=== PATIENT | female | born 1975 | race Caucasian/White ===

== ENCOUNTER 2018-06-08 08:19 | Inpatient (IN) | payer MEDICARE, MEDICAID ==
[2018-06-08 08:58] LABS: Actual Bicarbonate (HCO3a) 22.3 mEq/L (22-28); Analyzer IN Cardio ER; Base Excess (BEa) -5.2 mEq/L (-2.0 to +3.0); CO2 Tension 51.8 mmHg (35.0-45.0); Calcium, Ionized 1.11 mmol/L (1.12-1.30); Hemoglobin (Hb) 13.3 g/dL (12.0-16.0); O2 Tension (PaO2) 186.8 mmHg (80.0-100.0); Potassium - ABG Lab 2.87 mmol/L (3.70-5.30)
[2018-06-08 09:04] LABS: Puncture Site LRA; pH, Arterial 7.25 (7.35-7.45)
[2018-06-08 09:08] LABS: #Lymphocytes 0.3 thou/uL (1.20-3.40); #Monocytes 0.4 thou/uL (0.11-0.59); #Neutrophils 10.3 thou/uL (1.40-6.50); %Basophils 0.1 % (0.0-1.0); %Eosinophils 0.1 % (0.0-10.0); %Monocytes 3.5 % (0.0-10.0); %Neutrophils 93.3 % (42.0-75.0); Mean Corpuscular Hemoglobin 30.8 pg (27.0-31.0); Mean Corpuscular Volume 93.2 fL (78.0-98.0); Mean Platelet Volume 7.8 fL (7.4-10.4); Platelet Count 259 thou/uL (130-400); RBC Distribution Width 11.5 % (11.5-14.5); Red Blood Cell (RBC) Count 4.23 mill/uL (4.20-5.40); White Blood Cell (WBC) Count 11.1 thou/uL (4.8-10.8)
[2018-06-08 09:16] LABS: Bilirubin Negative (Negative); Blood, Urine Negative (Negative); Clarity CLOUDY (Clear); Glucose, Urine (Dipstick) Negative (Negative); Leukocyte Negative (Negative); Nitrite Negative (Negative); Protein, Urine (Dipstick) 30 mg/dL (Neg-Trace); Specific Gravity, Urine 1.017 (1.002-1.036); Urobilinogen 0.2 mg/dL (0.2-1.0)
[2018-06-08 09:18] LABS: ALT (SGPT) 21 U/L (8-55); AST (SGOT) 40 U/L (5-34); Albumin 3.7 g/dL (3.5-5.0); Alkaline Phosphatase 60 U/L (40-150); Anion Gap 12 mmol/L (10-20); BUN (Urea Nitrogen) 23 mg/dL (7.0-18.7); Bilirubin, Total 0.7 mg/dL (0.2-1.2); Calc. Creatinine Clearance 0 mL/min (70-130); Calcium 8.6 mg/dL (7.8-10.44); Carbon Dioxide 23 mmol/L (22-29); Chloride 107 mmol/L (98-107); Estimated GFR-MDRD 40; Globulin 2.7 g/dL (2.4-3.5); Glucose 184 mg/dL (70-105); Magnesium 1.4 mg/dL (1.6-2.6); Protein, Total 6.4 g/dL (6.0-8.3); Sodium 139 mmol/L (136-145)
[2018-06-08 09:18] LABS: Bacteria/HPF None Seen HPF (None Seen); RBC/HPF 0-3 HPF (0-3); Squamous Epithelial 0-3 HPF (0-3); WBC/HPF None Seen HPF (0-3)
[2018-06-08 09:22] LABS: Pathc Cast-AUWi Flag 3.05 (0-2.49)
[2018-06-08 09:23] LABS: Potassium 2.7 mmol/L (3.5-5.1)
[2018-06-08 09:28] LABS: Pregnancy Test - Urine (BHCG) Negative (Negative)
[2018-06-08 09:29] LABS: Pregu Control Background? CLEAR/WHITE (CLR/WHITE); Pregu Control Bar Appear? YES (CONTROL BAR); Specific Gravity 1.017 (1.002-1.036)
[2018-06-08 09:38] LABS: Amphetamine Not Detected (NotDetected); Cocaine Metabolite Screen Not Detected (NotDetected); Medtox Reader # READER 1; Methamphetamine Detected (NotDetected); Opiate Screen Not Detected (NotDetected); Phencyclidine (PCP) Not Detected (NotDetected); THC/Cannabinoid Screen Not Detected (NotDetected)
[2018-06-08 09:39] LABS: Barbiturates Screen Not Detected (NotDetected); Benzodiazepine Screen Detected (NotDetected); Medtox Control Line Valid? VALID (VALID); Methadone Not Detected (NotDetected); Oxycodone Screen Not Detected (NotDetected); Tricyclic Screen Detected (NotDetected)
[2018-06-08 09:48] LABS: Hyaline Casts/LPF 0-3 HYALINE CAST LPF (0-3 Hyaline); Manual Microscopic Reviewed? No Path Casts Seen
[2018-06-08] MEDS ORDERED: Magnesium 2 GM/50 ML BAG (IN WATER) ONE (09:56)
--- NOTE | 2018-06-08 09:57 | RAD ---
CHEST ONE VIEW: History: Possible overdose. Unresponsive patient. FINDINGS: Endotracheal tube is at the level of the clavicles. Normal cardiac silhouette. The pulmonary vessels and hilum are normal. Visualized costophrenic angles are clear. Possible right lower lobe infiltrate due to aspiration. Questionable left lower lobe infiltrate. No pneumothorax or osseous abnormality. IMPRESSION: Possible bibasilar infiltrate which may be due to aspiration. POS: [facility]
--- NOTE | 2018-06-08 09:59 | CT ---
CT HEAD NONCONTRAST: History: Altered mental status. Comparison: None. FINDINGS: There is no evidence of acute intracranial hemorrhage or infarct. Ventricles appear normal in size, s hape, and position. No mass effect or shift of midline structures. Physiologic calcification at the b [place] ganglia. Fluid layers within the dependent portion of the sphenoid sinus. IMPRESSION: No acute intracranial abnormalities are demonstrated. POS: [facility]
[2018-06-08] MEDS ORDERED: Potassium Chloride 20 MEQ in Premix Bag 1 BAG IVPB SCH ×2 (10:30→11:30)
--- NOTE | 2018-06-08 10:40 | RAD ---
SINGLE VIEW OF THE CHEST: Comparison: 06-08-18 History: Overdose on Seroquel and trazodone. Unresponsiveness. FINDINGS: A single view of the lower chest shows an NG tube in the stomach. There is no evidence of consolidati on, mass, or pleural effusion. IMPRESSION: NG tube located in the stomach. POS: [facility]
[2018-06-08] MEDS ORDERED: Potassium Chloride 40 MEQ in Premix Bag 1 BAG IVPB SCH (10:45)
--- NOTE | 2018-06-08 11:09 | PDOC.FPROB ---
FMR OB H&P: HPI - History of Present Illness Chief Complaint: Overdose History of Present Illness: 42 yo pt who was found by mother this morning passed out with vomit over her. FMR OB H&P: Medications - Current Allergies/Adverse Reactions: Allergies Allergy/AdvReac Type Severity Reaction Status Date / Time No Known Drug Allergies Allergy Verified 06/08/18 10:21 FMR OB H&P: Results - Labs Lab results: Laboratory Results - last 24 hr 06/08/18 06/08/18 06/08/18 08:25 08:25 08:25 WBC 11.1 H RBC 4.23 Hgb 13.0 Hct 39.4 MCV 93.2 MCH 30.8 MCHC 33.0 RDW 11.5 Plt Count 259 MPV 7.8 Neutrophils % 93.3 H Lymphocytes % 3.0 L Monocytes % 3.5 Eosinophils % 0.1 Basophils % 0.1 Neutrophils # 10.3 H Lymphocytes # 0.3 L Monocytes # 0.4 Eosinophils # 0.0 Basophils # 0.0 Specimen Type Puncture Site Bicarbonate Actual ABG pH ABG pCO2 ABG pO2 ABG O2 Sat Calc/Joe ABG O2 Content ABG Base Excess ABG Hematocrit ABG Hemoglobin ABG Oxyhemoglobin ABG Carboxyhemoglobin ABG Methemoglobin ABG Deoxyhemoglobin Kush Test A-a O2 Gradient Ionized Calcium Mode of Support Mechanical Rate Inspired O2 Tidal Volume Pressure Support PEEP or CPAP Sodium 139 Potassium 2.7 L* Chloride 107 Carbon Dioxide 23 Anion Gap 12 BUN 23 H Creatinine 1.46 H Estimated GFR (MDRD) 40 Glucose 184 H Calcium 8.6 Magnesium 1.4 L Total Bilirubin 0.7 AST 40 H ALT 21 Alkaline Phosphatase 60 Ammonia Creatine Kinase Serum Total Protein 6.4 Albumin 3.7 Globulin 2.7 Albumin/Globulin Ratio 1.4 TSH 3rd Generation 0.6581 Urine Color Urine Clarity Urine pH Ur Specific [place] Urine Protein Urine Glucose (UA) Urine Ketones Urine Blood Urine Nitrite Urine Bilirubin Urine Urobilinogen Ur Leukocyte Esterase Urine RBC Urine WBC Ur Squamous Epith Cells Urine Bacteria Hyaline Casts Urine Test Urine Opiates Screen Ur Oxycodone Screen Urine Methadone Screen Ur Propoxyphene Screen Ur Barbiturates Screen Ur Tricyclics Screen Ur Phencyclidine Scrn Ur Amphetamines Screen U Methamphetamines Scrn U Benzodiazepines Scrn U Cocaine Metab Screen U Cannabinoids Screen Drug Screen Comment 12/11/1906/08/18 06/08/18 08:25 08:38 08:38 WBC RBC Hgb Hct MCV MCH MCHC RDW Plt Count MPV Neutrophils % Lymphocytes % Monocytes % Eosinophils % Basophils % Neutrophils # Lymphocytes # Monocytes # Eosinophils # Basophils # Specimen Type Puncture Site Bicarbonate Actual ABG pH ABG pCO2 ABG pO2 ABG O2 Sat Calc/Joe ABG O2 Content ABG Base Excess ABG Hematocrit ABG Hemoglobin ABG Oxyhemoglobin ABG Carboxyhemoglobin ABG Methemoglobin ABG Deoxyhemoglobin Kush Test A-a O2 Gradient Ionized Calcium Mode of Support Mechanical Rate Inspired O2 Tidal Volume Pressure Support PEEP or CPAP Sodium Potassium Chloride Carbon Dioxide Anion Gap BUN Creatinine Estimated GFR (MDRD) Glucose Calcium Magnesium Total Bilirubin AST ALT Alkaline Phosphatase Ammonia Creatine Kinase 866 H Serum Total Protein Albumin Globulin Albumin/Globulin Ratio TSH 3rd Generation Urine Color Urine Clarity Urine pH Ur Specific [place] 1.017 Urine Protein Urine Glucose (UA) Urine Ketones Urine Blood Urine Nitrite Urine Bilirubin Urine Urobilinogen Ur Leukocyte Esterase Urine RBC Urine WBC Ur Squamous Epith Cells Urine Bacteria Hyaline Casts Urine Test Negative Urine Opiates Screen Not Detected Ur Oxycodone Screen Not Detected Urine Methadone Screen Not Detected Ur Propoxyphene Screen Not Detected Ur Barbiturates Screen Not Detected Ur Tricyclics Screen Detected H Ur Phencyclidine Scrn Not Detected Ur Amphetamines Screen Not Detected U Methamphetamines Scrn Detected H U Benzodiazepines Scrn Detected H U Cocaine Metab Screen Not Detected U Cannabinoids Screen Not Detected Drug Screen Comment 06/08/18 06/08/18 06/08/18 08:38 08:59 08:59 WBC RBC Hgb Hct MCV MCH MCHC RDW Plt Count MPV Neutrophils % Lymphocytes % Monocytes % Eosinophils % Basophils % Neutrophils # Lymphocytes # Monocytes # Eosinophils # Basophils # Specimen Type ARTERIAL Puncture Site LRA Bicarbonate Actual 22.3 ABG pH 7.25 L* ABG pCO2 51.8 H ABG pO2 186.8 H ABG O2 Sat Calc/Joe 98.7 H ABG O2 Content 18.3 ABG Base Excess -5.2 L ABG Hematocrit 39.0 ABG Hemoglobin 13.3 ABG Oxyhemoglobin 95.9 ABG Carboxyhemoglobin 2.0 ABG Methemoglobin 0.80 ABG Deoxyhemoglobin 1.3 Kush Test NOT DONE A-a O2 Gradient 461.450 H Ionized Calcium 1.11 L Mode of Support SIMV/PS Mechanical Rate 18 Inspired O2 100 Tidal Volume 450 Pressure Support 10 PEEP or CPAP 5.0 Sodium 141 Potassium 2.87 L Chloride 108 H Carbon Dioxide Anion Gap BUN Creatinine Estimated GFR (MDRD) Glucose Calcium Magnesium Total Bilirubin AST ALT Alkaline Phosphatase Ammonia 28 Creatine Kinase Serum Total Protein Albumin Globulin Albumin/Globulin Ratio TSH 3rd Generation Urine Color YELLOW Urine Clarity CLOUDY Urine pH 5.0 Ur Specific [place] 1.017 Urine Protein 30 H Urine Glucose (UA) Negative Urine Ketones Negative Urine Blood Negative Urine Nitrite Negative Urine Bilirubin Negative Urine Urobilinogen 0.2 Ur Leukocyte Esterase Negative Urine RBC 0-3 Urine WBC None Seen Ur Squamous Epith Cells 0-3 Urine Bacteria None Seen Hyaline Casts 0-3 HYALINE CAST Urine Test Urine Opiates Screen Ur Oxycodone Screen Urine Methadone Screen Ur Propoxyphene Screen Ur Barbiturates Screen Ur Tricyclics Screen Ur Phencyclidine Scrn Ur Amphetamines Screen U Methamphetamines Scrn U Benzodiazepines Scrn U Cocaine Metab Screen U Cannabinoids Screen Drug Screen Comment FMR OB H&P: A/P Discussion: Date/Time: 06/08/18 1104 This H&P was discussed with [] and [] who agree with the above documentation and plan.
--- NOTE | 2018-06-08 11:17 | PDOC.FPRHP ---
- History of Present Illness Chief Complaint: Overdose History of Present Illness: 42 yo female was found this morning by her mother passed out and covered in vomit. Pt is intubated and sedated. Unable to obtain ROS or History from pt. Unable to get ahold of family to get any further history at this time. Per EMS pt was found with an empty queitipine and trazadone bottle.d queitipine was filled with 90 pills on Jun 01. - Allergies/Adverse Reactions Allergies Allergy/AdvReac Type Severity Reaction Status Date / Time No Known Drug Allergies Allergy Verified 06/08/18 10:21 - History PMHx: unknown at this time PSHx: unknown at this time FHx: unknown at this time Social: unknown at this time. - Review of Systems ROS unobtainable: due to endotracheal tube - Vital signs BP: [] HR: [] RR: [] Tmax: [] Pox: []% on [] Wt: [] - Physical Exam HEENT: normocephalic and atraumatic, conjunctiva clear Neck: supple, trachea midline, no LAD Heart: RRR, normal S1/S2, no murmurs/rubs/gallops, pulses present, no edema Lungs: no respiratory distress -Lungs: Some rales noted Abdomen: soft, non-tender, bowel sounds present, no masses/distention, no hernias Musculoskeletal: normal structure, normal tone -Neurological: Unable to fully assess due to patient being sedated Skin: no rash/lesions, good turgor, capillary refill <2 seconds Heme/Lymphatic: no unusual bruising or bleeding, no purpura -Psychiatric: unable to assess due to intubation FMR H&P: Results - Labs Result Diagrams: 06/08/18 08:25 06/08/18 16:10 Lab results: WBC 11.1 thou/uL (4.8-10.8) H 06/08/18 08:25 Hgb 13.0 g/dL (12.0-16.0) 06/08/18 08:25 Hct 39.4 % (36.0-47.0) 06/08/18 08:25 MCV 93.2 fL (78.0-98.0) 06/08/18 08:25 Plt Count 259 thou/uL (130-400) 06/08/18 08:25 Neutrophils % 93.3 % (42.0-75.0) H 06/08/18 08:25 ABG pH 7.25 (7.35-7.45) L* 06/08/18 08:59 ABG pCO2 51.8 mmHg (35.0-45.0) H 06/08/18 08:59 ABG pO2 186.8 mmHg (80.0-100.0) H 06/08/18 08:59 Sodium 139 mmol/L (136-145) 06/08/18 08:25 Potassium 2.7 mmol/L (3.5-5.1) L* 06/08/18 08:25 Chloride 107 mmol/L (98-107) 06/08/18 08:25 Carbon Dioxide 23 mmol/L (22-29) 06/08/18 08:25 BUN 23 mg/dL (7.0-18.7) H 06/08/18 08:25 Creatinine 1.46 mg/dL (0.6-1.1) H 06/08/18 08:25 Glucose 184 mg/dL (70-105) H 06/08/18 08:25 Calcium 8.6 mg/dL (7.8-10.44) 06/08/18 08:25 Total Bilirubin 0.7 mg/dL (0.2-1.2) 06/08/18 08:25 AST 40 U/L (5-34) H 06/08/18 08:25 ALT 21 U/L (8-55) 06/08/18 08:25 Alkaline Phosphatase 60 U/L (40-150) 06/08/18 08:25 Ammonia 28 umol/L (18-72) 06/08/18 08:59 Creatine Kinase 866 U/L (29-168) H 06/08/18 08:25 Serum Total Protein 6.4 g/dL (6.0-8.3) 06/08/18 08:25 Albumin 3.7 g/dL (3.5-5.0) 06/08/18 08:25 Urine Ketones Negative mg/dL (Negative) 06/08/18 08:38 Urine Blood Negative (Negative) 06/08/18 08:38 Urine Nitrite Negative (Negative) 06/08/18 08:38 Ur Leukocyte Esterase Negative (Negative) 12/05/18 08:38 Urine RBC 0-3 HPF (0-3) 06/08/18 08:38 Urine WBC None Seen HPF (0-3) 06/08/18 08:38 Ur Squamous Epith Cells 0-3 HPF (0-3) 06/08/18 08:38 Urine Bacteria None Seen HPF (None Seen) 06/08/18 08:38 - EKG Interpretation EKG: QT interval prolonged to 610 - Radiology Interpretation Chest x-ray Status: image reviewed by me, report reviewed by me (Possible bibasliar infilfitrate. Concern for aspiration. OG tube in stomach.) CT scan - head Status: image reviewed by me, report reviewed by me (No acute intracranial abnormlities noted.) FMR H&P: A/P - Problem List (1) Overdose Current Visit: Yes Status: Acute Code(s): T50.901A - POISONING BY UNSP DRUG/ MEDS/BIOL SUBST, ACCIDENTAL, INIT (2) Prolonged Q-T interval on ECG Current Visit: Yes Status: Acute Code(s): R94.31 - ABNORMAL ELECTROCARDIOGRAM [ECG] [EKG] (3) Drug abuse Current Visit: Yes Status: Acute Code(s): F19.10 - OTHER PSYCHOACTIVE SUBSTANCE ABUSE, UNCOMPLICATED (4) Hypokalemia Current Visit: Yes Status: Acute Code(s): E87.6 - HYPOKALEMIA (5) Hypomagnesemia Current Visit: Yes Status: Acute Code(s): E83.42 - HYPOMAGNESEMIA (6) Aspiration pneumonia Current Visit: Yes Status: Acute Code(s): J69.0 - PNEUMONITIS DUE TO INHALATION OF FOOD AND VOMIT (7) CAL (acute kidney injury) Current Visit: Yes Status: Acute Code(s): N17.9 - ACUTE KIDNEY FAILURE, UNSPECIFIED - Plan Overdose, suspect seroquel and trazadone -Posion control notified. EKG shows prolonged QT. Replacing electrolytes as needed. -Will repeat EKG after electrolyte replacement. -Will repeat BMP at 1600. Will continue to replace as needed. -Intubated and Sedated. Admit to CCU -Pulmonology consulted- Dr. Lutz- follow recs -Pt CK elevated. Unsure of how long pt was down. Will fluid resuscitate with concern for rhabdo with NS@200mls/hr at this time -MHMR consult pending once medically stable Hypomagnesmia -Replacing at this time. Recheck at 1600. Continue to monitor and replace -Phosphorous pending Hypokalemia -Replacing with IV potassium. Will recheck BMp 1600. Continue to monitor and replace Aspiration PNA -WBC mildly elevated. Pt had fever upon arrival to ER. CXR shows bilateral lower infiltrates concern for aspiration. Pt found with vomit. -Concern for aspiration PNA at this time. -Got does of unasyn in ER. Will switch to zosyn at this time. CAL -Pt Cr bumped. CK elevated. Likely due to overdose and mild dehydration. -Fluid Resuscitation per above. Drug Abuse -UDS positive for meth. FMR H&P: Upper Level - Plan Date/Time: 06/08/18 1115 I, [], have evaluated this patient and agree with findings/plan as outlined by legal summer intern resident. Pertinent changes/additions are listed here. Attending Addendum - Attending Addendum Date/Time: 06/08/18 0316 I personally evaluated the patient and discussed the management with Dr. Milligan. I agree with the History, Examination, Assessment and Plan documented above with any addition or exceptions noted below. The patient is intubated in the ER after an overdose on seroquel. Getting additional ekg to trend QT. Pt's hair is covered in vomit. CXR consistent with aspiration. Will start zosyn. She reportedly had a fever when ems found her. Poison control has been contacted. Admitting to ICU. Will need mhmr once medically stable. Replace electrolytes.
[2018-06-08] MEDS ORDERED: Ampicillin/Sulbactam 3 GM in Sodium Chloride 0.9% 100 ML IVPB SCH (11:30)
[2018-06-08] MEDS ORDERED: Proparacaine 0.5% Opth 15 ML BOT ONE (11:32)
[2018-06-08] MEDS ORDERED: Fentanyl 100 MCG/2 ML VIAL ONE (11:46)
[2018-06-08 12:22] LABS: Phosphorus 1.8 mg/dL (2.3-4.7)
[2018-06-08] MEDS ORDERED: Ventilator Sedation Protocol 1 EACH FS SCH (12:28)
[2018-06-08] MEDS ORDERED: Senokot S 8.6-50 MG TAB PO PRN (12:28)
[2018-06-08] MEDS ORDERED: Bisacodyl 5 MG TAB PO PRN (12:28)
[2018-06-08] MEDS ORDERED: Propofol 1,000 MG/100 ML VIAL IV ONE (12:36)
[2018-06-08] MEDS ORDERED: Propofol BOLUS 1,000 MG/100 ML VIAL IV PRN (12:43)
[2018-06-08] MEDS ORDERED: Lorazepam 2 MG/ML VIAL SLOW IVP PRN (12:43)
[2018-06-08] MEDS ORDERED: DISCONTINUE PREVIOUS NARCOTIC PAIN MEDICATIONS AND BENZODIAZEPINES FS SCH (12:43)
[2018-06-08] MEDS ORDERED: Fentanyl BOLUS 250 ML IVPB PRN (12:43)
[2018-06-08] MEDS ORDERED: fentaNYL Citrate/PF 2,000 MCG in Sodium Chloride 0.9% 60 ML IV SCH (12:43)
[2018-06-08] MEDS ORDERED: Piperacillin/Tazobactam 3.375 GM in Sodium Chloride 0.9% 100 ML IVPB SCH (12:45)
[2018-06-08] MEDS ORDERED: Enoxaparin Sodium 30 MG/0.3 ML SYRINGE SC SCH (12:45)
[2018-06-08] MEDS: Sodium Chloride 0.9% 1,000 ML IV SCH ×3 (12:54→23:53)
[2018-06-08 13:42] LABS: Actual Bicarbonate (HCO3a) 20.2 mEq/L (22-28); Base Excess (BEa) -7.9 mEq/L (-2.0 to +3.0); CO2 Tension 52.4 mmHg (35.0-45.0); Calcium, Ionized 1.12 mmol/L (1.12-1.30); Carboxyhemoglobin (COHb) 1.2 gm% (0.0-3.0); Hemoglobin (Hb) 12.3 g/dL (12.0-16.0); O2 Tension (PaO2) 73.5 mmHg (80.0-100.0); Potassium - ABG Lab 4.51 mmol/L (3.70-5.30)
[2018-06-08 13:46] LABS: Puncture Site RBA
[2018-06-08 16:49] LABS: Anion Gap 11 mmol/L (10-20); BUN (Urea Nitrogen) 21 mg/dL (7.0-18.7); Calc. Creatinine Clearance 70 mL/min (70-130); Calcium 7.6 mg/dL (7.8-10.44); Carbon Dioxide 19 mmol/L (22-29); Chloride 114 mmol/L (98-107); Estimated GFR-MDRD 54; Glucose 215 mg/dL (70-105); Potassium 4.3 mmol/L (3.5-5.1); Sodium 140 mmol/L (136-145)
[2018-06-08] MEDS ORDERED: Sodium Chloride 0.9% 1,000 ML IV SCH (18:15)
[2018-06-08] MEDS: Piperacillin/Tazobactam 3.375 GM in Sodium Chloride 0.9% 100 ML IVPB SCH ×2 (18:25→23:49)
[2018-06-08] MEDS: Diabetic Tussin 200 MG/10 ML UDCUP PO SCH ×3 (18:26→22:27)
[2018-06-08] MEDS: Albuterol Sulfate 2.5 mg/3 ml Neb NEB SCH ×2 (18:27→22:33)
[2018-06-08] MEDS: Famotidine/PF 20 mg/2ml Vial SLOW IVP SCH (19:08)
[2018-06-08] MEDS: Morphine 2 MG/ML SYRINGE SLOW IVP PRN (20:15)
--- NOTE | 2018-06-08 20:48 | CON ---
DATE OF CONSULTATION: 06/08/2018 SUBJECTIVE: Shawna Pereyra is a 42-year-old female, who apparently took a large volume of Seroquel and trazodone. She subsequently was intubated in the field with a 6.0 endotracheal tube. She still has vomit in her hair. Subsequently, she has been admitted to the critical care unit for ventilatory support. PAST MEDICAL HISTORY: Unknown. FAMILY HISTORY: Unknown. SOCIAL HISTORY: Unknown. REVIEW OF SYSTEMS: Unknown and unobtainable. PHYSICAL EXAMINATION: GENERAL: The pupils are sluggish. She moves all of her extremities spontaneously. She was on no sedation when she arrived in the unit. She will not awaken. VITAL SIGNS: Heart rate is 102, blood pressure is 98/78, recommended another liter of saline to be infused, respiratory rate is 20, oximetry is 96. NECK: Without lymphadenopathy. LUNGS: Clear. HEART: Regular rhythm. S1 and S2 are normal. ABDOMEN: Soft. No masses. EXTREMITIES: Without edema. IMAGING DATA: Chest radiograph shows an NG tube, no infiltrates. IMPRESSION: 1. Polypharmaceutical overdose. 2. Probable intravascular volume depletion. PLAN: IV hydration, ventilatory support, sedation to keep her from self- extubating. Hopefully, she will be a candidate for extubation within 24 to 48 hours. TIME SPENT: Critical care time 30 minutes. Job ID: [id number] MTDD
[2018-06-08] MEDS: Propofol 1,000 MG/100 ML VIAL IV PRN (21:11)
[2018-06-09] MEDS: Morphine 2 MG/ML SYRINGE SLOW IVP PRN ×2 (00:01→06:06)
[2018-06-09] MEDS: Albuterol Sulfate 2.5 mg/3 ml Neb NEB SCH ×6 (02:18→22:35)
[2018-06-09] MEDS: Diabetic Tussin 200 MG/10 ML UDCUP PO SCH ×6 (02:57→21:44)
[2018-06-09] MEDS: Piperacillin/Tazobactam 3.375 GM in Sodium Chloride 0.9% 100 ML IVPB SCH (05:31)
[2018-06-09] MEDS: Sodium Chloride 0.9% 1,000 ML IV SCH (05:31)
[2018-06-09 06:00] VITALS: BMI 25.3
[2018-06-09 06:52] LABS: Actual Bicarbonate (HCO3a) 18.5 mEq/L (22-28); Base Excess (BEa) -5.5 mEq/L (-2.0 to +3.0); Calcium, Ionized 1.01 mmol/L (1.12-1.30); Carboxyhemoglobin (COHb) 0.8 gm% (0.0-3.0); O2 Tension (PaO2) 91.4 mmHg (80.0-100.0); Potassium - ABG Lab 3.42 mmol/L (3.70-5.30); pH, Arterial 7.39 (7.35-7.45)
[2018-06-09 06:55] LABS: Puncture Site LBA
[2018-06-09] MEDS: Propofol 1,000 MG/100 ML VIAL IV PRN (07:09)
--- NOTE | 2018-06-09 07:23 | PDOC.FM ---
- Subjective Subjective: Pt intubated. Pt somewhat agitated. Responds to voice. Does not follow commands. Pt has no signs of acute distress. Per nurse unable to fully sedate as it will decrease her BP. - Objective MAR Reviewed: Yes Vital Signs & Weight: Vital Signs (12 hours) Temp Pulse Resp BP Pulse Ox 06/09/18 07:00 98.8 F 06/09/18 06:00 26 H 06/09/18 04:00 99 F 26 H 06/09/18 03:07 26 H 99 06/09/18 02:18 77 104/71 06/09/18 02:00 99.1 F 26 H 06/09/18 00:00 26 H 06/08/18 23:43 26 H 96 06/08/18 23:00 99 F 06/08/18 22:34 80 95/65 06/08/18 22:00 98.4 F 25 H 06/08/18 20:00 26 H 99 Weight Weight 67 kg Most Recent Monitor Data Heart Rate from ECG 85 NIBP 93/52 NIBP BP-Mean 65 Respiration from ECG 19 SpO2 100 I&O: 06/08/18 06/09/18 06/10/18 06:59 06:59 06:59 Intake Total 5511.5 Output Total 1525 80 Balance 3986.5 -80 Result Diagrams: 06/08/18 08:25 06/08/18 16:10 Radiology Reviewed by me: Yes Radiology: No new imaging to review today. <Angel Milligan - Last Filed: 06/09/18 07:21> - Objective Vital Signs & Weight: Vital Signs (12 hours) Temp Pulse Resp BP Pulse Ox 06/09/18 14:47 116 H 29 H 93 L 06/09/18 09:49 114 H 22 H 92 L 06/09/18 08:10 114 H 25 H 92 L 06/09/18 07:38 84 93/52 L 06/09/18 07:37 82 26 H 98 06/09/18 07:00 98.8 F 06/09/18 06:00 26 H 06/09/18 04:00 99 F 26 H 06/09/18 03:07 26 H 99 Weight Weight 67 kg Most Recent Monitor Data Heart Rate from ECG 117 NIBP 134/76 NIBP BP-Mean 95 Respiration from ECG 33 SpO2 91 I&O: 06/08/18 06/09/18 06/10/18 06:59 06:59 06:59 Intake Total 5511.5 16 Output Total 1525 150 Balance 3986.5 -134 Result Diagrams: 06/09/18 07:31 06/09/18 07:31 <JitendraCorrie - Last Filed: 06/09/18 14:57> Phys Exam - Physical Examination Constitutional: NAD HEENT: PERRLA, moist MMs Neck: no nodes, no JVD, supple, full ROM some rales and crackles noted in lower bases bilaterally. No wheezing Cardiovascular: RRR, no significant murmur, no rub Gastrointestinal: soft, non-tender, no distention, positive bowel sounds Musculoskeletal: no edema, pulses present Neurological: moves all 4 limbs unable to fully assess. Pt not following commands Lymphatic: no nodes Deviation from normal: Unable to fully assess due to intubation. Skin: no rash, normal turgor <Angel Milligan - Last Filed: 06/09/18 07:21> Dx/Plan (1) Overdose Code(s): T50.901A - POISONING BY UNSP DRUG/MEDS/BIOL SUBST, ACCIDENTAL, INIT Status: Acute (2) Prolonged Q-T interval on ECG Code(s): R94.31 - ABNORMAL ELECTROCARDIOGRAM [ECG] [EKG] Status: Acute (3) Drug abuse Code(s): F19.10 - OTHER PSYCHOACTIVE SUBSTANCE ABUSE, UNCOMPLICATED Status: Acute (4) Hypokalemia Code(s): E87.6 - HYPOKALEMIA Status: Acute (5) Hypomagnesemia Code(s): E83.42 - HYPOMAGNESEMIA Status: Acute (6) Aspiration pneumonia Code(s): J69.0 - PNEUMONITIS DUE TO INHALATION OF FOOD AND VOMIT Status: Acute (7) CAL (acute kidney injury) Code(s): N17.9 - ACUTE KIDNEY FAILURE, UNSPECIFIED Status: Acute - Plan Plan: Overdose, suspect seroquel and trazadone -Posion control notified. EKG shows prolonged QT upon admission. Replacing electrolytes as needed. -Repeat EKG this morning shows QTc at 510. Improving. no other abnormalities noted. . -Intubated and Sedated. -Pulmonology consulted- Dr. Lutz- follow recs -fluid resuscitate with concern for rhabdo with NS@200mls/hr at this time. May back down depending on Cr on CMP this morning. -MHMR consult pending once medically stable Hypomagnesmia (Resoloved) -Repeat lab pending today. continue to monitor and replace Hypokalemia (resolved) -Replaced with IV potassium yesterday. BMP pending today. -will continue to monitor and replace Aspiration PNA -WBC mildly elevated upon admission. Pt had fever upon arrival to ER. CXR shows bilateral lower infiltrates concern for aspiration. Pt found with vomit. -Concern for aspiration PNA at this time. -Repeat CBC pending today. -Got does of unasyn in ER. -Zosyn for abx coverage at this time. Pt having some purulent secretions per nursing. ACL -Pt Cr improved yesterday. CMP pending today. -Fluid rescusitation per above. Drug Abuse -UDS positive for meth. <Angel Milligan - Last Filed: 06/09/18 07:21> (1) Overdose Code(s): T50.901A - POISONING BY UNSP DRUG/MEDS/BIOL SUBST, ACCIDENTAL, INIT Status: Acute (2) Prolonged Q-T interval on ECG Code(s): R94.31 - ABNORMAL ELECTROCARDIOGRAM [ECG] [EKG] Status: Acute (3) Drug abuse Code(s): F19.10 - OTHER PSYCHOACTIVE SUBSTANCE ABUSE, UNCOMPLICATED Status: Acute (4) Hypokalemia Code(s): E87.6 - HYPOKALEMIA Status: Acute (5) Hypomagnesemia Code(s): E83.42 - HYPOMAGNESEMIA Status: Acute (6) Aspiration pneumonia Code(s): J69.0 - PNEUMONITIS DUE TO INHALATION OF FOOD AND VOMIT Status: Acute (7) CAL (acute kidney injury) Code(s): N17.9 - ACUTE KIDNEY FAILURE, UNSPECIFIED Status: Acute <Corrie Ham - Last Filed: 06/09/18 14:57> Attending Addendum - Attending Addendum Date/Time: 06/09/18 9920 I personally evaluated the patient and discussed the management with Dr. Milligan. I agree with the History, Examination, Assessment and Plan documented above with any addition or exceptions noted below. Pt has been extubated but is in 4-point restraints as she continues to try to get out of bed which isn't safe. She is mumbling and pt's sister is at bedside. She gives history that pt is schizophrenic. <Corrie Ham - Last Filed: 06/09/18 14:57>
[2018-06-09 08:02] LABS: ALT (SGPT) 27 U/L (8-55); AST (SGOT) 60 U/L (5-34); Albumin 2.9 g/dL (3.5-5.0); Alkaline Phosphatase 46 U/L (40-150); Anion Gap 11 mmol/L (10-20); BUN (Urea Nitrogen) 13 mg/dL (7.0-18.7); Bilirubin, Total 0.4 mg/dL (0.2-1.2); Calc. Creatinine Clearance 99 mL/min (70-130); Calcium 7.2 mg/dL (7.8-10.44); Carbon Dioxide 18 mmol/L (22-29); Chloride 118 mmol/L (98-107); Estimated GFR-MDRD 79; Globulin 2.4 g/dL (2.4-3.5); Glucose 148 mg/dL (70-105); Magnesium 2.1 mg/dL (1.6-2.6); Potassium 3.7 mmol/L (3.5-5.1); Protein, Total 5.3 g/dL (6.0-8.3); Sodium 143 mmol/L (136-145)
[2018-06-09 08:03] LABS: Phosphorus 1.5 mg/dL (2.3-4.7)
[2018-06-09 08:06] LABS: Band 20 % (5-11); Hemoglobin 10.9 g/dL (12.0-16.0); Lymphocytes 10 % (21-51); MDiff Complete? YES; Mean Corpuscular HGB CONC 33.4 g/dL (32.0-36.0); Mean Corpuscular Hemoglobin 31.4 pg (27.0-31.0); Mean Platelet Volume 7.6 fL (7.4-10.4); Monocytes 2 % (0-10); Neutrophil 68 % (42-75); PLT Morphology Comment Appears Adequate; Platelet Count 201 thou/uL (130-400); RBC Distribution Width 11.8 % (11.5-14.5); Red Blood Cell (RBC) Count 3.47 mill/uL (4.20-5.40); White Blood Cell (WBC) Count 10.9 thou/uL (4.8-10.8)
[2018-06-09] MEDS ORDERED: Haloperidol Lactate 5 MG/ML VIAL IM SCH ×2 (08:30→13:15)
[2018-06-09] MEDS ORDERED: Enoxaparin Sodium 30 MG/0.3 ML SYRINGE SC SCH (09:00)
[2018-06-09] MEDS: Amoxicillin/Potassium Clav 875 MG TAB PO SCH ×2 (09:00→21:44)
[2018-06-09] MEDS: Famotidine/PF 20 mg/2ml Vial SLOW IVP SCH ×2 (09:00→21:50)
[2018-06-09] MEDS ORDERED: SODIUM PHOSPHATE IVPB SCH (09:30)
[2018-06-09] MEDS ORDERED: POTASSIUM CHLORIDE IVPB SCH (09:30)
[2018-06-09] MEDS ORDERED: SODIUM CHLORIDE 0.9% IVPB SCH (09:30)
--- NOTE | 2018-06-09 11:25 | PRG ---
DATE OF SERVICE: 06/09/2018 SUBJECTIVE: Ms. Pereyra awakened quickly when sedation was turned off this morning. OBJECTIVE: VITAL SIGNS: Heart rate 84, blood pressure is 93/50, respiratory rate 20s, temperature is 98. HEENT: Pupils are equal. Sclerae are anicteric. NECK: Supple. LUNGS: Clear. HEART: Regular rhythm. S1 and S2 are normal. ABDOMEN: Soft and nontender. Secretions have improved. LABORATORY DATA: White count 10.9, hemoglobin 10.9, and platelets 201,000. Sodium 143, potassium 3.7, chloride 118, bicarb 18, BUN 13, creatinine 0.8, glucose 148 , phosphorus 1.5. Sodium phosphate and potassium chloride have been ordered. IMPRESSION: Status post polypharmaceutical overdose. PLAN: Extubation and then evaluation by TRINI. She will be switched to p.o. antibiotics. Critical care time is 35 minutes. Job ID: [id number] MTDD
[2018-06-09] MEDS: Ondansetron PF 4 MG/2 ML Vial IVP PRN (14:15)
--- NOTE | 2018-06-09 14:15 | PQF ---
CLINICAL DOCUMENTATION IMPROVEMENT CLARIFICATION FORM: ICD-10 Updated PLEASE DO AN ADDENDUM TO THE PROGRESS NOTE WITH ANY DOCUMENTATION UPDATES OR ADDITIONS AND CARRY THROUGH TO DC SUMMARY. THANK YOU. DATE: 06/09/18 ATTN: DR. CEDILLO Please exercise your independent, professional judgment in responding to the clarification form. Clinical indicators are provided on the bottom of this form for your review Please check appropriate box(s): [ x ] Acute Respiratory Failure: [ x] with Hypoxia[ ] with Hypercapnia [ x ] Acute Respiratory Failure due to: (etiology) Pickwickian and Sepsis 2/2 perforated GE junction ulcer [ ] ARDS (Acute Respiratory Distress Syndrome) [ ] Hypoxia [ ] Other diagnosis [ ] Unable to determine In addition, please specify: Present on Admission (POA): [ ] Yes [ ] No [ ] Unable to determine For continuity of documentation, please document condition throughout progress notes and discharge summary. Thank You. CLINICAL INDICATORS - SIGNS / SYMPTOMS / LABS ER NOTE: "FOUND UNRESPONSIVE ON COUCH AND COVERED IN VOMIT" "MINIMALLY RESPONSIVE TO PAINFUL STIMULI" "INTUBATED FOR AIRWAY PROTECTION" CHEST XRAY 06/08: "POSSIBLE RIGHT LOWER LOBE INFILTRATE DUE TO ASPIRATION" BP 84/59 PULSE 100-114 RISKS: OVERDOSE (H&P) ASPIRATION PNEUMONIA (H&P) TREATMENT: INTUBATION PER EMS MECHANICAL VENTILATION CRITICAL CARE MONITORING PULMONARY CONSULT ABGS (This form is maintained as a part of the permanent medical record) 2014 [employer] All Rights Reserved ALLEN [email or web address] Office: [phone] [facility]EN[facility]ida
[2018-06-09] MEDS: Haloperidol Lactate 5 MG/ML VIAL IM SCH ×2 (18:06→21:51)
[2018-06-09] MEDS: Enoxaparin Sodium 40 MG/0.4 ML SYRINGE SC SCH (18:07)
[2018-06-10] MEDS: Haloperidol Lactate 5 MG/ML VIAL IM SCH ×6 (02:03→20:19)
[2018-06-10] MEDS: Albuterol Sulfate 2.5 mg/3 ml Neb NEB SCH ×7 (03:20→23:58)
[2018-06-10] MEDS: Diabetic Tussin 200 MG/10 ML UDCUP PO SCH ×7 (04:19→22:54)
[2018-06-10 08:13] LABS: Anion Gap 12 mmol/L (10-20); BUN (Urea Nitrogen) 11 mg/dL (7.0-18.7); Calc. Creatinine Clearance 131 mL/min (70-130); Carbon Dioxide 21 mmol/L (22-29); Chloride 119 mmol/L (98-107); Estimated GFR-MDRD Greater than 90; Glucose 81 mg/dL (70-105); Potassium 3.8 mmol/L (3.5-5.1); Sodium 148 mmol/L (136-145)
--- NOTE | 2018-06-10 08:24 | PDOC.FM ---
- Subjective Subjective: Pt is confused at this time. She is A&Ox1. She is not aware where she is at. Pt is agitated and non cooperative. - Objective MAR Reviewed: Yes Vital Signs & Weight: Vital Signs (12 hours) Temp Pulse Resp Pulse Ox 06/10/18 07:35 98.4 F 06/10/18 04:00 98.0 F 06/10/18 00:00 97.8 F 06/09/18 22:35 109 H 31 H 93 L Weight Weight 68.765 kg Most Recent Monitor Data Heart Rate from ECG 103 NIBP 121/67 NIBP BP-Mean 85 Respiration from ECG 31 SpO2 89 I&O: 06/09/18 06/10/18 06/11/18 06:59 06:59 06:59 Intake Total 5511.5 1595 Output Total 1525 2145 80 Balance 3986.5 -550 -80 Result Diagrams: 06/09/18 07:31 06/10/18 07:10 Radiology Reviewed by me: Yes Radiology: No new imaging to review <Angel Milligan - Last Filed: 06/10/18 08:22> - Objective Vital Signs & Weight: Vital Signs (12 hours) Temp Pulse Resp BP Pulse Ox 06/10/18 11:19 99.0 F 104 H 22 H 117/76 92 L 06/10/18 10:02 93 L 06/10/18 09:55 101 H 29 H 93 L 06/10/18 08:00 92 L 06/10/18 07:35 98.4 F 06/10/18 04:00 98.0 F Weight Weight 68.765 kg Most Recent Monitor Data Heart Rate from ECG 108 NIBP 128/78 NIBP BP-Mean 94 Respiration from ECG 33 SpO2 92 I&O: 06/09/18 06/10/18 06/11/18 06:59 06:59 06:59 Intake Total 5511.5 1595 350 Output Total 1525 2145 410 Balance 3986.5 -550 -60 Result Diagrams: 06/10/18 07:10 06/10/18 07:10 <Corrie Ham - Last Filed: 06/10/18 14:20> Phys Exam - Physical Examination Constitutional: NAD HEENT: PERRLA, moist MMs Neck: no nodes, supple, full ROM Crackles note in both lungs bilaterally. Some mild rales noted Cardiovascular: no significant murmur, no rub Pt tachycardic. Regular rhythem Gastrointestinal: soft, non-tender, no distention, positive bowel sounds Musculoskeletal: no edema, pulses present Neurological: non-focal, moves all 4 limbs Deviation from normal: Pt is agitated and confused Skin: no rash, normal turgor, cap refill <2 seconds <Angel Milligan - Last Filed: 06/10/18 08:22> Dx/Plan (1) Overdose Code(s): T50.901A - POISONING BY UNSP DRUG/MEDS/BIOL SUBST, ACCIDENTAL, INIT Status: Acute (2) Prolonged Q-T interval on ECG Code(s): R94.31 - ABNORMAL ELECTROCARDIOGRAM [ECG] [EKG] Status: Acute (3) Drug abuse Code(s): F19.10 - OTHER PSYCHOACTIVE SUBSTANCE ABUSE, UNCOMPLICATED Status: Acute (4) Hypokalemia Code(s): E87.6 - HYPOKALEMIA Status: Acute (5) Hypomagnesemia Code(s): E83.42 - HYPOMAGNESEMIA Status: Acute (6) Aspiration pneumonia Code(s): J69.0 - PNEUMONITIS DUE TO INHALATION OF FOOD AND VOMIT Status: Acute (7) CAL (acute kidney injury) Code(s): N17.9 - ACUTE KIDNEY FAILURE, UNSPECIFIED Status: Acute (8) Schizophrenia Code(s): F20.9 - SCHIZOPHRENIA, UNSPECIFIED Status: Acute - Plan Plan: Overdose, suspect seroquel and trazadone -Posion control notified. EKG shows prolonged QT upon admission. Replacing electrolytes as needed. -Repeat EKG yesterday shows QTc at 510. Repeat EKG pending today. -Pt on extubated. Pt confused still and agitated. Could be still coming off seroquel medication. -Pulmonology consulted- Dr. Lutz- follow recs -[facility] consult pending once medically stable Aspiration PNA -WBC mildly elevated upon admission. Pt had fever upon arrival to ER. CXR shows bilateral lower infiltrates concern for aspiration. Pt found with vomit. -Repeat CBC pending today. -Got does of unasyn in ER. -Pt sitll having purulent secretions. O2 sats stable. Switched to augmentin yesterday. Did not pass swallow test yesterday. Will reevaluate swallow today. May need to switch to oral abx til passes. Schizophrenia -Holding pt home meds now. -IV haldol as needed for agitation at this time. Hypomagnesmia (Resoloved) -Repeat lab pending today. continue to monitor and replace Hypokalemia (resolved) -Replaced with IV potassium yesterday. BMP pending today. -will continue to monitor and replace CAL (Resolved) -Pt Cr improved today. Continue to trend with labs as needed. Drug Abuse -UDS positive for meth. <Angel Milligan - Last Filed: 06/10/18 08:22> (1) Overdose Code(s): T50.901A - POISONING BY UNSP DRUG/MEDS/BIOL SUBST, ACCIDENTAL, INIT Status: Acute (2) Prolonged Q-T interval on ECG Code(s): R94.31 - ABNORMAL ELECTROCARDIOGRAM [ECG] [EKG] Status: Acute (3) Drug abuse Code(s): F19.10 - OTHER PSYCHOACTIVE SUBSTANCE ABUSE, UNCOMPLICATED Status: Acute (4) Hypokalemia Code(s): E87.6 - HYPOKALEMIA Status: Acute (5) Hypomagnesemia Code(s): E83.42 - HYPOMAGNESEMIA Status: Acute (6) Aspiration pneumonia Code(s): J69.0 - PNEUMONITIS DUE TO INHALATION OF FOOD AND VOMIT Status: Acute (7) CAL (acute kidney injury) Code(s): N17.9 - ACUTE KIDNEY FAILURE, UNSPECIFIED Status: Acute <Corrie Ham - Last Filed: 06/10/18 14:20> Attending Addendum - Attending Addendum Date/Time: 06/10/18 [id number] I personally evaluated the patient and discussed the management with Dr. Milligan. I agree with the History, Examination, Assessment and Plan documented above with any addition or exceptions noted below. The patient is stable to move to the floor. She is still confused and is not oriented to time or place. Will require a sitter on the floor. <Corrie Ham - Last Filed: 06/10/18 14:20>
[2018-06-10 08:25] LABS: Hemoglobin 11.3 g/dL (12.0-16.0); Mean Corpuscular HGB CONC 33.8 g/dL (32.0-36.0); Mean Corpuscular Hemoglobin 31.7 pg (27.0-31.0); Mean Corpuscular Volume 93.6 fL (78.0-98.0); Mean Platelet Volume 8.1 fL (7.4-10.4); Platelet Count 215 thou/uL (130-400); RBC Distribution Width 11.9 % (11.5-14.5); Red Blood Cell (RBC) Count 3.58 mill/uL (4.20-5.40); White Blood Cell (WBC) Count 10.3 thou/uL (4.8-10.8)
[2018-06-10] MEDS: Ondansetron PF 4 MG/2 ML Vial IVP PRN (08:41)
[2018-06-10] MEDS: Enoxaparin Sodium 40 MG/0.4 ML SYRINGE SC SCH (08:43)
[2018-06-10 08:48] LABS: Phosphorus 1.6 mg/dL (2.3-4.7)
[2018-06-10] MEDS: Amoxicillin/Potassium Clav 875 MG TAB PO SCH ×2 (09:10→20:18)
[2018-06-10] MEDS: Famotidine/PF 20 mg/2ml Vial SLOW IVP SCH ×2 (09:11→20:19)
[2018-06-10 09:29] LABS: Band 28 % (5-11); Lymphocytes 6 % (21-51); MDiff Complete? YES; Monocytes 1 % (0-10); Neutrophil 65 % (42-75); PLT Morphology Comment Appears Adequate; Polychromasia SLIGHT = 2-3 cells (100X) (0-2/hpf)
--- NOTE | 2018-06-10 10:26 | PQF ---
CLINICAL DOCUMENTATION IMPROVEMENT CLARIFICATION FORM: ICD-10 Updated PLEASE DO AN ADDENDUM TO THE PROGRESS NOTE WITH ANY DOCUMENTATION UPDATES OR ADDITIONS AND CARRY THROUGH TO DC SUMMARY. THANK YOU. DATE: 06/10/18 ATTN : DR. CEDILLO Please exercise your independent, professional judgment in responding to the clarification form. Clinical indicators are provided on the bottom of this form for your review Please check appropriate box(s): [ x] Encephalopathy: Type: [ x ] Acute [ ] Subacute [ ] Chronic Etiology: [ ] Hypertensive [ ] Metabolic [ x] Toxic [ ] Hepatic with Coma [ ] Hepatic w/o Coma [ ] Hypoxic [ ] Septic [ x] Drug induced: [ ] Unspecified [ ] in the setting of underlying dementia [ x ] Other (please specify) [ ] Transient Alteration of Awareness [x ] Other diagnosis Shizophrenia [ ] Unable to determine In addition, please specify: Present on Admission (POA): [ x ] Yes [ ] No [ ] Unable to determine For continuity of documentation, please document condition throughout progress notes and discharge summary. Thank You. CLINICAL INDICATORS - SIGNS / SYMPTOMS / LABS PROGRESS NOTE 06/10: "PT IS CONFUSED AT THIS TIME. PT IS AGITATED AND NON COOPERATIVE." NURSES NOTE 06/10: "PT TALKING TO PEOPLE IN ROOM THAT ARE NOTE THERE BUT CAN ANSWER QUESTIONS WHEN YOU GET PT TO FOCUS ON CONVERSATION, PT IMPULSIVE AND DOES NOT FOLLOW INSTRUCTIONS AND ATTEMPTS TO PULL OUT LINES AND CRAWL OVER RAILS. 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 All Rights Reserved ALLEN [email or web address] Office: [phone] [facility]
[2018-06-10] MEDS ORDERED: Sodium Phosphate 40 MMOL in Sodium Chloride 0.9% 250 ML 250 ML IVPB SCH (10:30)
--- NOTE | 2018-06-10 10:48 | RAD ---
PORTABLE CHEST: HISTORY: Aspiration. COMPARISON: 06/08/2018 exam. FINDINGS: Heart size is within normal limits. Fairly diffuse interstitial alveolar lung changes more in a jd hilar distribution, a significant change since the 06/08/2018 exam. IMPRESSION: Fairly diffuse interstitial alveolar lung changes in a slightly more parahilar distribution. Changes could be related to a diffuse pneumonia versus pulmonary edema. POS: [facility]
[2018-06-10] MEDS ORDERED: Aspirin/APAP/Caffeine Tab (Excedrin Migraine) PO PRN (12:57)
--- NOTE | 2018-06-10 13:13 | PRG ---
DATE OF SERVICE: 06/10/2018 SUBJECTIVE: Ms. Pereyra is delusional and hallucinating and fairly verbally aggressive. OBJECTIVE: VITAL SIGNS: Heart rate 101, respiratory rate 20s, oximetry is 93, and O2 sat 94% on 4 L. LUNGS: Remarkable for rhonchi bilaterally. HEART: Regular rhythm. ABDOMEN: Soft. DIAGNOSTIC DATA: Chest radiograph shows bilateral infiltrates. LABORATORY DATA: White count 10.3, hemoglobin 11.3, and platelets 215,000. Sodium 148, potassium 3.8, chloride 119, bicarb 21, BUN 11, and creatinine 0.62. IMPRESSION: 1. Pulmonary infiltrates, most likely secondary to an aspiration pneumonitis, most likely chemical pneumonitis. She does not clinically appear to be infected. a. She will need to be continued to be monitored. She is on p.o. antimicrobial therapy after initial IV antibiotic therapy given empirically. b. She needs to continue the nebulized therapy. She also needs to continue to be in acutely monitored environment. Once she is medically stable, she probably needs inpatient therapy. Unfortunately, her drug use will interfere with any type of long-term benefit from psychiatric therapy. She did admit to use methamphetamine within the last week. 2. Status post multidrug overdose. 3. Methamphetamine use. 4. Psychotic and schizophrenic behavior. 5. Probable chemical pneumonitis secondary to large volume aspiration at home where she was found unconscious. PLAN: Continue p.o. antimicrobial therapy. She did swallow the guaifenesin liquid this morning. Critical care time is 35 minutes. Job ID: [id number] MTDD
[2018-06-10] MEDS ORDERED: Acetaminophen 650 MG Suppository PR PRN (16:08)
[2018-06-10] MEDS: Acetaminophen 325 MG TAB PO PRN (16:27)
--- NOTE | 2018-06-10 18:47 | EKG ---
Test Reason : POST K+ Blood Pressure : / mmHG Vent. Rate : 098 BPM Atrial Rate : 098 BPM P-R Int : 148 ms QRS Dur : 082 ms QT Int : 408 ms P-R-T Axes : 073 082 048 degrees QTc Int : 520 ms Poor data quality, interpretation may be adversely affected Normal sinus rhythm Nonspecific T wave abnormality Prolonged QT Abnormal ECG Confirmed by Max CARBAJAL ([id number]) on 06/10/2018 6:46:49 PM Referred By: Confirmed By:Max CARBAJAL
--- NOTE | 2018-06-10 18:49 | EKG ---
Test Reason : STAT Blood Pressure : / mmHG Vent. Rate : 095 BPM Atrial Rate : 095 BPM P-R Int : 142 ms QRS Dur : 076 ms QT Int : 410 ms P-R-T Axes : 078 081 -72 degrees QTc Int : 515 ms Normal sinus rhythm Low voltage QRS T wave abnormality, consider inferior ischemia T wave abnormality, consider anterolateral ischemia Abnormal ECG Confirmed by Max CARBAJAL ([id number]) on 06/10/2018 6:48:51 PM Referred By: [facility] Confirmed By:Max CARBAJAL
[2018-06-10] MEDS: Lorazepam 1 MG TAB PO PRN (20:18)
[2018-06-11] MEDS: Lorazepam 1 MG TAB PO PRN ×6 (00:21→21:10)
[2018-06-11] MEDS: Acetaminophen 325 MG TAB PO PRN ×4 (00:21→23:11)
[2018-06-11] MEDS: Haloperidol Lactate 5 MG/ML VIAL IM SCH ×6 (00:22→21:08)
[2018-06-11] MEDS: Diabetic Tussin 200 MG/10 ML UDCUP PO SCH ×6 (04:10→23:11)
[2018-06-11] MEDS: Albuterol Sulfate 2.5 mg/3 ml Neb NEB SCH ×5 (06:42→22:28)
[2018-06-11 06:44] LABS: Anion Gap 9 mmol/L (10-20); BUN (Urea Nitrogen) 8 mg/dL (7.0-18.7); Calc. Creatinine Clearance 134 mL/min (70-130); Calcium 8.2 mg/dL (7.8-10.44); Carbon Dioxide 26 mmol/L (22-29); Chloride 112 mmol/L (98-107); Estimated GFR-MDRD Greater than 90; Glucose 98 mg/dL (70-105); Potassium 3.5 mmol/L (3.5-5.1); Sodium 143 mmol/L (136-145)
[2018-06-11 06:53] LABS: Band 10 % (5-11); Eosinophils 3 % (0-10); Hemoglobin 11.3 g/dL (12.0-16.0); Lymphocytes 9 % (21-51); MDiff Complete? YES; Mean Corpuscular HGB CONC 33.9 g/dL (32.0-36.0); Mean Corpuscular Hemoglobin 31.7 pg (27.0-31.0); Mean Corpuscular Volume 93.6 fL (78.0-98.0); Mean Platelet Volume 7.8 fL (7.4-10.4); Monocytes 2 % (0-10); Neutrophil 75 % (42-75); Platelet Count 205 thou/uL (130-400); Reactive Lymphocytes 1 % (0-10); Red Blood Cell (RBC) Count 3.56 mill/uL (4.20-5.40); White Blood Cell (WBC) Count 9.7 thou/uL (4.8-10.8)
--- NOTE | 2018-06-11 07:00 | PDOC.FM ---
- Subjective Subjective: Patient endorsed SOB on exam and was visibly tachypnic. Requested to be able to shower, eat, and brush her teeth. Other than her breathing, patient has no complaints. - Objective MAR Reviewed: Yes Vital Signs & Weight: Vital Signs (12 hours) Temp Pulse Resp BP BP Pulse Ox 06/11/18 06:46 94 L 06/11/18 06:42 112 H 24 H 94 L 06/11/18 04:10 98.2 F 101 H 20 126/81 91 L 06/11/18 00:20 99.0 F 105 H 20 109/69 95 06/10/18 23:58 111 H 22 H 90 L 06/10/18 20:18 20 90 L 06/10/18 19:56 97.3 F L 108 H 20 101/63 06/10/18 19:04 101 H 24 H Weight Weight 67.177 kg Most Recent Monitor Data Heart Rate from ECG 108 NIBP 128/78 NIBP BP-Mean 94 Respiration from ECG 33 SpO2 92 I&O: 06/09/18 06/10/18 06/11/18 06:59 06:59 06:59 Intake Total 5511.5 1595 862 Output Total 1525 2145 1310 Balance 3986.5 -550 -448 Result Diagrams: 06/11/18 05:28 06/11/18 05:28 Phys Exam - Physical Examination Mild distress 2/2 increased work of breathing. HEENT: sclera anicteric Neck: supple, full ROM Respiratory: wheezing present (in B/L upper lobes) diffuse crackles heard throughout Cardiovascular: RRR, no significant murmur Gastrointestinal: positive bowel sounds Neurological: non-focal, moves all 4 limbs Psychiatric: normal affect, A&O x 3 Skin: no rash, normal turgor Dx/Plan (1) CAL (acute kidney injury) Code(s): N17.9 - ACUTE KIDNEY FAILURE, UNSPECIFIED Status: Acute (2) Aspiration pneumonia Code(s): J69.0 - PNEUMONITIS DUE TO INHALATION OF FOOD AND VOMIT Status: Acute (3) Drug abuse Code(s): F19.10 - OTHER PSYCHOACTIVE SUBSTANCE ABUSE, UNCOMPLICATED Status: Acute (4) Hypokalemia Code(s): E87.6 - HYPOKALEMIA Status: Acute (5) Hypomagnesemia Code(s): E83.42 - HYPOMAGNESEMIA Status: Acute (6) Overdose Code(s): T50.901A - POISONING BY UNSP DRUG/MEDS/BIOL SUBST, ACCIDENTAL, INIT Status: Acute (7) Prolonged Q-T interval on ECG Code(s): R94.31 - ABNORMAL ELECTROCARDIOGRAM [ECG] [EKG] Status: Acute (8) Schizophrenia Code(s): F20.9 - SCHIZOPHRENIA, UNSPECIFIED Status: Acute - Plan Plan: Overdose, suspect seroquel and trazadone - Poison control notified. EKG shows prolonged QT upon admission. Replacing electrolytes as needed. - Repeat EKG 2 days ago showed QTc at 510 that has continued to downtrend. - Pt extubated & has been requiring up to 4-5L via NC to maintain sats between 91-94%. - Pulmonology consulted & Dr. Lutz is following. Appreciate recs. Will continue RALPH albuterol Q4H per pulmonology & supplemental O2 via NC to maintain sats >92%. Will wean both as tolerated by the patient. - MR consult once medically stable. Aspiration PNA vs. chemical pneumonitis - WBC mildly elevated upon admission & patient had a fever upon arrival to ER. CXR from yesterday shows - Repeat CBC today showed WBC of 9.7. - Will wean off NC as tolerated by patient. Still requiring 4-5L to maintain sats >92%. Will continue PO augmentin per pulm recs. - Will continue PO tylenol for fever. Schizophrenia - Holding pt home meds now due to OD. - IV haldol RALPH for agitation at this time. - Will contact poison control regarding when it would be safe to resume home doses of seroquel and trazadone again. Hypophosphatemia - Phos low at 1.0 today. - Will replace w/ 40 of K-phosphate IV and recheck Phos level @ 16:30. - Will continue to monitor and replace PRN. Hypomagnesmia - Resolved, Mg elevated at 3.0 yesterday. - Will continue to monitor and replace PRN. Hypokalemia - Resolved as K was 3.5 this AM. - Will continue to monitor and replace PRN.
[2018-06-11 07:51] LABS: Magnesium 2.3 mg/dL (1.6-2.6)
[2018-06-11] MEDS: Amoxicillin/Potassium Clav 875 MG TAB PO SCH (08:09)
[2018-06-11] MEDS: Enoxaparin Sodium 40 MG/0.4 ML SYRINGE SC SCH (08:09)
[2018-06-11] MEDS: Famotidine/PF 20 mg/2ml Vial SLOW IVP SCH ×2 (08:10→21:09)
[2018-06-11] MEDS ORDERED: Potassium Phosphate 40 MMOL in Sodium Chloride 0.9% 500 ML IVPB SCH (09:30)
--- NOTE | 2018-06-11 13:47 | EKG ---
Test Reason : Blood Pressure : / mmHG Vent. Rate : 106 BPM Atrial Rate : 106 BPM P-R Int : 136 ms QRS Dur : 082 ms QT Int : 416 ms P-R-T Axes : 072 081 051 degrees QTc Int : 552 ms Sinus tachycardia Otherwise normal ECG Confirmed by ISABEL BARRY DO ([id number]), desk editor KAREN ONEILL ([id number]) on 06/11/2018 1:47:37 PM Referred By: Confirmed By:ISABEL BARRY DO
--- NOTE | 2018-06-11 13:47 | EKG ---
Test Reason : AMS Blood Pressure : / mmHG Vent. Rate : 121 BPM Atrial Rate : 121 BPM P-R Int : 122 ms QRS Dur : 084 ms QT Int : 430 ms P-R-T Axes : 077 079 064 degrees QTc Int : 610 ms Sinus tachycardia T wave abnormality, consider inferior ischemia Abnormal ECG Confirmed by ISABEL BARRY DO ([id number]), editorial director KAREN ONEILL ([id number]) on 06/11/2018 1:47:30 PM Referred By: Confirmed By:ISABEL BARRY DO
[2018-06-11 19:03] LABS: #Lymphocytes 0.9 thou/uL (1.20-3.40); #Monocytes 0.6 thou/uL (0.11-0.59); #Neutrophils 6.8 thou/uL (1.40-6.50); %Basophils 0.5 % (0.0-1.0); %Eosinophils 0.5 % (0.0-10.0); %Lymphocytes 10.7 % (21.0-51.0); %Monocytes 6.6 % (0.0-10.0); %Neutrophils 81.7 % (42.0-75.0); Hemoglobin 10.5 g/dL (12.0-16.0); Mean Corpuscular HGB CONC 32.5 g/dL (32.0-36.0); Mean Corpuscular Hemoglobin 30.5 pg (27.0-31.0); Mean Corpuscular Volume 93.9 fL (78.0-98.0); Mean Platelet Volume 7.7 fL (7.4-10.4); Platelet Count 182 thou/uL (130-400); Red Blood Cell (RBC) Count 3.44 mill/uL (4.20-5.40); White Blood Cell (WBC) Count 8.3 thou/uL (4.8-10.8)
--- NOTE | 2018-06-11 19:09 | RAD ---
PORTABLE AP CHEST X-RAY 06/11/18 HISTORY: Oxygen desaturation. COMPARISON: 06/10/18. FINDINGS: Again noted is diffuse interstitial and alveolar opacities seen throughout the lungs bilaterally in a n overall similar distribution to the prior study and may be slightly increased at the right lung bas e on the current exam. No pleural fluid is seen. The cardiac silhouette is within normal limits. No other interval change. IMPRESSION: Diffuse interstitial and alveolar opacities throughout the lungs bilaterally which may be related to either bilateral pneumonia and possibly atypical pneumonia versus asymmetric pulmonary edema. Continu ed followup to resolution is recommended. POS: [facility]
[2018-06-11 19:25] LABS: Phosphorus 2.2 mg/dL (2.3-4.7)
--- NOTE | 2018-06-11 19:26 | PRG ---
DATE OF SERVICE: 06/11/2018 SERVICE: Pulmonary Medicine. INTERVAL HISTORY: The patient is doing okay from a neurologic standpoint. She is on Haldol. She has had multiple doses of Ativan throughout the day. Currently, she is a little somnolent, but wakes up comfortably. She is protecting her airway. She is tachypneic and has a toxic appearance to her. OBJECTIVE: VITAL SIGNS: Temperature maximum 101.8, pulse 112, blood pressure 105/62, respirations 32, saturation 94% on 4 L nasal cannula. GENERAL: The patient is slightly toxic appearing. She is in mild distress secondary to that. HEENT: Normocephalic and atraumatic. Sclerae white. Conjunctivae pink. Oral mucosa is moist without lesions. LUNGS: Decent air entry. Extensive crackling is present. HEART: Normal rate and regular. ABDOMEN: Soft, nontender, and nondistended. Bowel sounds are positive. MUSCULOSKELETAL: No cyanosis or clubbing. There is no pitting in the bilateral lower extremities. NEUROLOGIC: Nonfocal. LABORATORY DATA: WBC is 9.7, hemoglobin 11.3, and platelets 205,000. Basic metabolic profile is completely unremarkable. Phosphorus is 1.0, potassium 3.5, magnesium 2.3. Otherwise, basic metabolic profile is unremarkable. IMAGING DATA: Chest x-ray demonstrates extensive bilateral alveolar opacifications. I do not see any discrete air bronchograms. These are new since she has been in the hospital. Apparently, she did run in a fever in the emergency department. ASSESSMENT: 1. Acute hypoxic respiratory failure. 2. Community-acquired pneumonia. 3. Metabolic encephalopathy secondary to substance abuse. 4. Schizophrenia with acute psychosis. DISCUSSION AND PLAN: At this point, she has this toxic appearance about her. She is also tachypneic and tachycardic. She is running a very high fever, which is new. We are in the process of moving her back down to the [facility]. We will put her on CPAP for a short period of time. If she has any clinical deterioration, we may need to reintubate her and move her back into the ICU. Pulmonary/Critical Care will continue to follow very closely. Job ID: [id number]
--- NOTE | 2018-06-11 19:38 | PDOC.EVN ---
Event Note - Event Note Event Note: Resident to bedside at approx. 6:30 to evaluate patient. Went to evaluate immediately after handover when notified by the day team that they were recently paged by nursing with concerns about new onset fever and increased resp rate in the 30's. Pt ill appearing and diaphoretic upon entering room. O2 sat 94% on 4L NC and temp 101.8 degF w/ RR 24 and tachycardic into the 110's. Pt able to speak in full sentences during interview. Has been on Augmentin BID over the past few days for Aspiration peumonitis vs pneumonia. Lungs with overall good air movement but diffuse crackles and rhonci noted on exam. Stat repeat cultures and CXR obtained. Discussed case w/ Dr. Somers of pulmonology w / transfer to the IMCU and changing abx to broad spectrum coverage w/ Vancomycin and Zosyn. CXR reviewed by Dr. Somers and myself noting increased pulm vascular markings concerning for possible fluid overload as patient is volume-up approx. 4L since arrival. This could also be hiding underlying lobar infiltrate with her new onset fever. Will hold off on IVF resuscitation 2/[address] Somers's recommendations as her volume status is likely contributing to her current respiratory status. Will continue to monitor closely overnight in the IMCU and place patient on CPAP/BIPAP if her resp. status deteriorates.
[2018-06-11] MEDS: Vancomycin HCl 1 GM in Premix Bag 1 BAG IVPB SCH (21:09)
[2018-06-11] MEDS: Piperacillin/Tazobactam 3.375 GM in Sodium Chloride 0.9% 100 ML IVPB SCH (23:10)
[2018-06-11] MEDS: Ondansetron PF 4 MG/2 ML Vial IVP PRN (23:20)
[2018-06-12] MEDS: Haloperidol Lactate 5 MG/ML VIAL IM SCH ×6 (01:45→21:27)
[2018-06-12] MEDS: Lorazepam 1 MG TAB PO PRN ×6 (01:46→21:27)
[2018-06-12] MEDS: Diabetic Tussin 200 MG/10 ML UDCUP PO SCH ×5 (01:46→21:25)
[2018-06-12] MEDS: Albuterol Sulfate 2.5 mg/3 ml Neb NEB SCH ×6 (02:47→22:13)
[2018-06-12] MEDS: Cepastat Lozenges 1 LOZ PO PRN (04:17)
[2018-06-12] MEDS: Piperacillin/Tazobactam 3.375 GM in Sodium Chloride 0.9% 100 ML IVPB SCH ×3 (05:08→17:19)
[2018-06-12 05:49] LABS: Anion Gap 10 mmol/L (10-20); BUN (Urea Nitrogen) 5 mg/dL (7.0-18.7); Calc. Creatinine Clearance 135 mL/min (70-130); Calcium 8.5 mg/dL (7.8-10.44); Carbon Dioxide 25 mmol/L (22-29); Chloride 110 mmol/L (98-107); Estimated GFR-MDRD Greater than 90; Glucose 105 mg/dL (70-105); Magnesium 1.7 mg/dL (1.6-2.6); Phosphorus 1.7 mg/dL (2.3-4.7); Potassium 3.8 mmol/L (3.5-5.1); Sodium 141 mmol/L (136-145)
[2018-06-12 06:16] LABS: Band 13 % (5-11); Eosinophils 1 % (0-10); Hemoglobin 10.7 g/dL (12.0-16.0); Lymphocytes 12 % (21-51); MDiff Complete? YES; Mean Corpuscular HGB CONC 33.4 g/dL (32.0-36.0); Mean Corpuscular Hemoglobin 31.5 pg (27.0-31.0); Mean Corpuscular Volume 94.4 fL (78.0-98.0); Mean Platelet Volume 7.9 fL (7.4-10.4); Monocytes 5 % (0-10); Neutrophil 69 % (42-75); PLT Morphology Comment Appears Adequate; Platelet Count 192 thou/uL (130-400); RBC Distribution Width 12.1 % (11.5-14.5); Red Blood Cell (RBC) Count 3.39 mill/uL (4.20-5.40); White Blood Cell (WBC) Count 8.3 thou/uL (4.8-10.8)
--- NOTE | 2018-06-12 06:33 | PDOC.FM ---
- Subjective Subjective: Patient was transferred back to the [facility] early yesterday evening due to worsening respiratory status as well as fever up to 101.8F. Patient was noted to be ill appearing and diaphoretic upon entering room & vital consisted of an O2 sat of 94% on 4L NC, temp of 101.8F, RR of 24, and HR into the 110's. Patient was however able to speak in full sentences so the transfer was more of a precaution should she deterioriate any further requiring BiPAP/CPAP/ intubation for respiratory support. On exam this morning, patient was uncooperative at first and would not answer questions but eventually woke up and reported that her breathing was perhaps a little better but that she is still having a productive cough. Sitter reports she ate a good breakfast and has been trying to get up to use the bathroom despite having a pugh in place but is easily redirected. - Objective MAR Reviewed: Yes Vital Signs & Weight: Vital Signs (12 hours) Temp Pulse Resp BP BP Pulse Ox 06/12/18 06:10 101.9 F H 122 H 06/12/18 03:55 98.5 F 110 H 28 H 123/78 100 06/12/18 02:47 98 20 99 06/11/18 23:50 99.7 F H 112 H 18 126/80 98 06/11/18 22:28 90 20 06/11/18 20:00 99 06/11/18 19:43 99.5 F 110 H 30 H 113/70 99 06/11/18 18:34 100.6 F H 112 H 32 H 105/62 94 L Weight Weight 66.134 kg Most Recent Monitor Data Heart Rate from ECG 108 NIBP 128/78 NIBP BP-Mean 94 Respiration from ECG 33 SpO2 92 I&O: 06/10/18 06/11/18 06/12/18 06:59 06:59 06:59 Intake Total 4153 903 4259 Output Total 9725 3668 4893 Balance -101 -776 2930 Result Diagrams: 06/12/18 04:22 06/12/18 04:22 <Torrie Braden - Last Filed: 06/12/18 09:32> - Objective Vital Signs & Weight: Vital Signs (12 hours) Temp Pulse Resp BP BP Pulse Ox 06/12/18 08:00 99.9 F H 120 H 20 111/67 93 L 06/12/18 07:57 99 06/12/18 07:18 99 06/12/18 07:11 107 H 38 H 99 06/12/18 06:10 101.9 F H 122 H 06/12/18 03:55 98.5 F 110 H 28 H 123/78 100 06/12/18 02:47 98 20 99 06/11/18 23:50 99.7 F H 112 H 18 126/80 98 Weight Weight 66.134 kg Most Recent Monitor Data Heart Rate from ECG 108 NIBP 128/78 NIBP BP-Mean 94 Respiration from ECG 33 SpO2 92 I&O: 06/11/18 06/12/18 06/13/18 06:59 06:59 06:59 Intake Total 862 4840 Output Total 1310 2295 Balance -448 2545 Result Diagrams: 06/12/18 04:22 06/12/18 04:22 <Steve Medina - Last Filed: 06/12/18 11:01> Phys Exam - Physical Examination Constitutional: NAD HEENT: moist MMs Neck: supple Respiratory: wheezing present Diffuse rhonchi and wheezing with more pronounced wheezing in B/L upper lobes Cardiovascular: RRR, no significant murmur Gastrointestinal: soft, positive bowel sounds Musculoskeletal: no edema Neurological: non-focal, moves all 4 limbs Psychiatric: normal affect, A&O x 3 Skin: no rash, normal turgor <Torrie Braden - Last Filed: 06/12/18 09:32> Dx/Plan (1) CAL (acute kidney injury) Code(s): N17.9 - ACUTE KIDNEY FAILURE, UNSPECIFIED Status: Acute (2) Aspiration pneumonia Code(s): J69.0 - PNEUMONITIS DUE TO INHALATION OF FOOD AND VOMIT Status: Acute (3) Drug abuse Code(s): F19.10 - OTHER PSYCHOACTIVE SUBSTANCE ABUSE, UNCOMPLICATED Status: Acute (4) Hypokalemia Code(s): E87.6 - HYPOKALEMIA Status: Acute (5) Hypomagnesemia Code(s): E83.42 - HYPOMAGNESEMIA Status: Acute (6) Overdose Code(s): T50.901A - POISONING BY UNSP DRUG/MEDS/BIOL SUBST, ACCIDENTAL, INIT Status: Acute (7) Prolonged Q-T interval on ECG Code(s): R94.31 - ABNORMAL ELECTROCARDIOGRAM [ECG] [EKG] Status: Acute (8) Schizophrenia Code(s): F20.9 - SCHIZOPHRENIA, UNSPECIFIED Status: Acute (9) Hypophosphatemia Code(s): E83.39 - OTHER DISORDERS OF PHOSPHORUS METABOLISM Status: Acute - Plan Plan: Overdose, suspect seroquel and trazadone - Poison control notified. EKG shows prolonged QT upon admission. Replacing electrolytes as needed. - Repeat EKG 3 days ago showed QTc at 510 that has continued to downtrend. - Patient has been requiring up to 4-5L via NC to maintain sats between 91-94% & was transferred back to the [facility] yesterday due to worsening tachypnea and fever. - Pulmonology is following. Appreciate recs. Will continue RALPH albuterol Q4H per pulmonology & supplemental O2 via NC to maintain sats >92%. Switched back to broad spectrum abx as it is likely that the patient has now developed an aspiration pneumonia rather than a chemical pneumonitis. Repeat CXR done yesterday evening showed increased vascular markings concerning for possible fluid overload which could be hiding an infiltrate. Will treat suspected PNA as outlined below. - MR consult once medically stable. Sepsis 2/2 Suspected Aspiration PNA - Fever and tachycardia yesterday w/ suspected pulmonary infiltrates meets sepsis criteria. Repeat blood and urine cultures ordered yesterday during transfer back to [facility]. - WBC continues to downtrend. Down to 8.3 this AM. However, procalcitonin from yesterday elevated at 1.55. Will continue to trend. CXR from yesterday shows findings described above concerning for volume overload likely hiding an infiltrate. - Will continue O2 support PRN and wean as tolerated by patient. Still requiring 4-5L to maintain sats >92%. Will continue RALPH ventolin as well. - Will continue IV broad spectrum antibiotics per pulm recs. - Will continue PO tylenol & robitussin for fever and cough. Schizophrenia - Holding pt home meds now due to OD. However, per poison control yesterday, should be safe to resume home meds now whenever we see fit. Will defer restarting until patient becomes more medically stable w/o any increased risk of aspiration before resuming home PO meds. - Will therefore continue IV haldol RALPH for agitation at this time. Will also continue PRN ativan as patient seemed a little more irritable today. Hypophosphatemia - Phos low at 1.6 today. - Will replace of K-phosphate IV and recheck Phos level with AM labs tomorrow. - Will continue to monitor and replace PRN. Hypomagnesmia - Resolved, Mg WNLs at 1.7 today. - Will continue to monitor and replace PRN. Hypokalemia - Resolved as K was 3.8 this AM. - Will continue to monitor and replace PRN. <Torrie Braden - Last Filed: 06/12/18 09:32> Attending Addendum - Attending Addendum Date/Time: 06/12/18 3471 I personally evaluated the patient and discussed the management with Dr. Braden I agree with the History, Examination, Assessment and Plan documented above with any addition or exceptions noted below. Patient with aspiration pneumonia complicated by diffuse pulmonary edema. Abx broaden and patient moved to [facility] for higher level care due to recent worsening. At this time, has stabilized but still short of breath on exertion. Diuresing well. Resume home antipsychotics. <Steve Medina - Last Filed: 06/12/18 11:01>
[2018-06-12] MEDS ORDERED: Potassium Phosphate 30 MMOL in Sodium Chloride 0.9% 500 ML IVPB SCH (06:45)
[2018-06-12] MEDS: Vancomycin HCl 1 GM in Premix Bag 1 BAG IVPB SCH ×2 (08:59→21:27)
[2018-06-12] MEDS: Famotidine/PF 20 mg/2ml Vial SLOW IVP SCH ×2 (09:00→21:27)
[2018-06-12] MEDS: Enoxaparin Sodium 40 MG/0.4 ML SYRINGE SC SCH (09:00)
[2018-06-12] MEDS ORDERED: Furosemide 20 MG/2 ML VIAL SLOW IVP SCH (15:00)
[2018-06-12] MEDS ORDERED: Magnesium 2 GM/50 ML 2 GM in Premix Bag 1 BAG IVPB SCH (15:15)
--- NOTE | 2018-06-12 16:10 | PRG ---
DATE OF SERVICE: 06/12/2018 SERVICE: Pulmonary Medicine. INTERVAL HISTORY: The patient's breathing remains labored. She is having increasing requirements for oxygen. She is getting frequent nebulized medication, but these do not seem to improve what she is doing. She has a wet cough, but does not bring anything up. She has had multiple fevers throughout the night. PHYSICAL EXAMINATION: VITAL SIGNS: T-max 101.9. Pulse 104, blood pressure 121/88, respirations 24, and saturation 95% on 4 L nasal cannula. GENERAL: The patient is awake, alert, and in no apparent distress. LUNGS: Extensive wheezing, crackles, and rhonchi are present. They are present in both the anterior and posterior shaffer. HEART: Tachycardic. Regular. ABDOMEN: Soft, nontender, and nondistended. Bowel sounds are positive. MUSCULOSKELETAL: No cyanosis or clubbing. There is no pitting in the bilateral lower extremities. NEUROLOGIC: Grossly nonfocal. LABORATORY DATA: WBC 8.3, hemoglobin 10.7, and platelets 192,000. Band count is 13%. Basic metabolic profile is essentially unremarkable. Phosphorus is 1.7 and magnesium is 1.7. Procalcitonin is 0.82 and downtrending. Blood cultures x6 are unremarkable. Urine culture is unremarkable. ASSESSMENT: 1. Acute hypoxic respiratory failure. 2. Community-acquired pneumonia, possible. 3. Metabolic encephalopathy secondary to substance abuse. 4. Schizophrenia with acute psychosis. DISCUSSION AND PLAN: The patient appears a little bit less toxic today. Her blood pressures have firmed up very nicely. As such, we will give her couple of doses of Lasix today and tomorrow morning. However, I agree with repeat chest x-ray in the morning. We will continue our empiric antibiotics, but would stop culturing her fever. There is a possibility that we are dealing with systemic inflammatory response secondary to overt pulmonary hemorrhage/edema. If things get worse, we will likely need to move forward with intubating her, particularly if she does not respond comfortably to noninvasive therapy. I am doubtful that we are dealing with an inflammatory condition given our presentation and timeline. Job ID: [id number]
[2018-06-12] MEDS: Acetaminophen 325 MG TAB PO PRN ×2 (16:18→22:43)
[2018-06-13] MEDS: Diabetic Tussin 200 MG/10 ML UDCUP PO SCH ×7 (01:45→23:54)
[2018-06-13] MEDS: Piperacillin/Tazobactam 3.375 GM in Sodium Chloride 0.9% 100 ML IVPB SCH ×5 (01:48→23:54)
[2018-06-13] MEDS: Lorazepam 1 MG TAB PO PRN ×6 (01:48→22:17)
[2018-06-13] MEDS: Haloperidol Lactate 5 MG/ML VIAL IM SCH ×6 (01:48→22:17)
[2018-06-13] MEDS: Albuterol Sulfate 2.5 mg/3 ml Neb NEB SCH ×6 (04:00→22:29)
[2018-06-13 05:33] LABS: Anion Gap 12 mmol/L (10-20); BUN (Urea Nitrogen) 6 mg/dL (7.0-18.7); Calc. Creatinine Clearance 135 mL/min (70-130); Calcium 8.8 mg/dL (7.8-10.44); Carbon Dioxide 29 mmol/L (22-29); Chloride 102 mmol/L (98-107); Estimated GFR-MDRD Greater than 90; Glucose 108 mg/dL (70-105); Magnesium 1.6 mg/dL (1.6-2.6); Phosphorus 2.2 mg/dL (2.3-4.7); Potassium 3.7 mmol/L (3.5-5.1); Sodium 139 mmol/L (136-145)
[2018-06-13] MEDS ORDERED: Furosemide 20 MG/2 ML VIAL SLOW IVP SCH (06:00)
--- NOTE | 2018-06-13 06:42 | PDOC.FM ---
- Subjective Subjective: Pt sleeping in bed when entering the room. Pt reports being tired. Wakes up and answers some questions. A&Ox2. Sitter in the room denies any acute events overnight. Pt still requiring 4 L NC O2. Pt denies any chest pain. Denies any acute events overnight. - Objective MAR Reviewed: Yes Vital Signs & Weight: Vital Signs (12 hours) Temp Pulse Resp BP Pulse Ox 06/13/18 04:00 99.6 F 112 H 20 148/89 H 90 L 06/12/18 22:45 101.7 F H 06/12/18 22:13 96 16 96 06/12/18 21:28 99.8 F H 106 H 20 116/76 97 06/12/18 20:00 96 06/12/18 18:46 104 H 28 H 96 Weight Weight 66.134 kg Most Recent Monitor Data Heart Rate from ECG 108 NIBP 128/78 NIBP BP-Mean 94 Respiration from ECG 33 SpO2 92 I&O: 06/11/18 06/12/18 06/13/18 06:59 06:59 06:59 Intake Total 862 4840 2240 Output Total 1310 2295 7350 Balance -448 3714 -4317 Result Diagrams: 06/12/18 04:22 06/13/18 04:21 Radiology Reviewed by me: Yes Radiology: Repeat C-xray today pending. <Angel Milligan - Last Filed: 06/13/18 06:40> - Objective Vital Signs & Weight: Vital Signs (12 hours) Temp Pulse Resp BP Pulse Ox 06/13/18 08:00 98.9 F 96 24 H 101/65 97 06/13/18 07:49 97 06/13/18 04:00 99.6 F 112 H 20 148/89 H 90 L Weight Weight 66.134 kg Most Recent Monitor Data Heart Rate from ECG 108 NIBP 128/78 NIBP BP-Mean 94 Respiration from ECG 33 SpO2 92 I&O: 06/12/18 06/13/18 06/14/18 06:59 06:59 06:59 Intake Total 4840 3360 Output Total 2295 7350 Balance 8051 -4921 Result Diagrams: 06/12/18 04:22 06/13/18 04:21 <Jerel Hopper - Last Filed: 06/13/18 11:39> Phys Exam - Physical Examination Pt laying in bed comfortably HEENT: moist MMs, oral pharynx no lesions Neck: no nodes, supple, full ROM Respiratory: wheezing present Wheezing bilaterally. Crackles noted diffusely. Cardiovascular: RRR, no significant murmur, no rub Gastrointestinal: soft, non-tender, no distention, positive bowel sounds Musculoskeletal: no edema, pulses present Neurological: non-focal, moves all 4 limbs Deviation from normal: Pt sleeping. Somewhat difficult to arrouse. Skin: no rash, normal turgor, cap refill <2 seconds <Angel Milligan - Last Filed: 06/13/18 06:40> Dx/Plan (1) Overdose Code(s): T50.901A - POISONING BY UNSP DRUG/MEDS/BIOL SUBST, ACCIDENTAL, INIT Status: Acute (2) Aspiration pneumonia Code(s): J69.0 - PNEUMONITIS DUE TO INHALATION OF FOOD AND VOMIT Status: Acute Qualifiers: Aspiration pneumonia type: due to vomit Laterality: bilateral (3) Drug abuse Code(s): F19.10 - OTHER PSYCHOACTIVE SUBSTANCE ABUSE, UNCOMPLICATED Status: Acute (4) Hypokalemia Code(s): E87.6 - HYPOKALEMIA Status: Acute (5) Hypomagnesemia Code(s): E83.42 - HYPOMAGNESEMIA Status: Acute (6) CAL (acute kidney injury) Code(s): N17.9 - ACUTE KIDNEY FAILURE, UNSPECIFIED Status: Resolved (7) Schizophrenia Code(s): F20.9 - SCHIZOPHRENIA, UNSPECIFIED Status: Chronic (8) Prolonged Q-T interval on ECG Code(s): R94.31 - ABNORMAL ELECTROCARDIOGRAM [ECG] [EKG] Status: Resolved - Plan Plan: Overdose, suspect seroquel and trazadone - Poison control notified. EKG shows prolonged QT upon admission. Replacing electrolytes as needed. - Repeat EKG 3 days ago showed QTc at 510 that has continued to downtrend. - Patient has been requiring up to 4-5L via NC to maintain sats between 91-94% & was transferred back to the [facility] 06/11 due to worsening tachypnea and fever. - Pulmonology is following. Appreciate recs. Will continue ELSA albuterol Q4H per pulmonology & supplemental O2 via NC to maintain sats >92%. Switched back to broad spectrum abx as it is likely that the patient has now developed an aspiration pneumonia rather than a chemical pneumonitis. -Repeat C-xray pending today. Will continue with lasix for pulm edema as well. - MR consult once medically stable. Sepsis 2/2 Suspected Aspiration PNA - Fever and tachycardia on 12/8 w/ suspected pulmonary infiltrates meets sepsis criteria. Pt still had fever last night and elevated HR -Urine and Blood Cx show NGTD. Repeat C-xray pending per above. - WBC stable. Procalcitonin negative. - Will continue O2 support PRN and wean as tolerated by patient. Still requiring 4-5L to maintain sats >92%. Will continue ELSA ventolin as well. - Will continue IV broad spectrum antibiotics per pulm recs. - Will continue PO tylenol & robitussin for fever and cough. Schizophrenia - Holding pt home meds now due to OD. However, per poison control yesterday, should be safe to resume home meds now whenever we see fit. Will talk with family as home doses of medicine unknown. -Will continue IV haldol elsa and ativan PRN as needed. Hypophosphatemia - Phos low at 2.2 today. Will replace with IV NaP. - Will continue to monitor and replace PRN. Hypomagnesmia (Resoloved) - Resolved, Mg WNLs at 1.7 today. - Will continue to monitor and replace PRN. Hypokalemia (Resolved) - Resolved as K was 3.7 this AM. - Will continue to monitor and replace PRN. <Angel Milligan - Last Filed: 06/13/18 06:40> Attending Addendum - Attending Addendum Date/Time: 06/13/18 7037 I personally evaluated the patient and discussed the management with Dr. Milligan and Anel. I agree with and repeated the History, Examination, Assessment and Plan documented above with any addition or exceptions noted below. Patient with + F/chills, +cough and shortness of breath; denies cp Tachypneic with mild rtx. Diffuse wheezing, rhonchi, crackles. ALI 2/2 aspiration with likely superimposed asp PNA. Continue antimicrobial coverage. <Jerel Hopper - Last Filed: 06/13/18 11:39>
[2018-06-13 08:41] LABS: Vancomycin, Trough 4.6 ug/mL
[2018-06-13] MEDS: Enoxaparin Sodium 40 MG/0.4 ML SYRINGE SC SCH (08:59)
[2018-06-13] MEDS: Famotidine/PF 20 mg/2ml Vial SLOW IVP SCH ×2 (08:59→22:17)
[2018-06-13] MEDS: Vancomycin HCl 1 GM in Premix Bag 1 BAG IVPB SCH (09:00)
[2018-06-13] MEDS: Cepastat Lozenges 1 LOZ PO PRN (14:33)
[2018-06-13] MEDS ORDERED: Potassium Chloride 20 MEQ TAB PO SCH (15:00)
[2018-06-13] MEDS ORDERED: Magnesium 2 GM/50 ML 2 GM in Premix Bag 1 BAG IVPB SCH (15:00)
--- NOTE | 2018-06-13 15:27 | PRG ---
DATE OF SERVICE: 06/13/2018 SERVICE: Pulmonary Medicine. INTERVAL HISTORY: The patient is doing really well from a respiratory standpoint. She is breathing comfortably today. She is not working, nearly is hard to breathe. She is more cooperative. Denies any cough, nausea, or vomiting. She is tolerating p.o. She still requires a little bit of oxygen. PHYSICAL EXAMINATION: VITAL SIGNS: Afebrile, pulse 96, blood pressure 101/65, respirations 24, and saturation 97% on 5 L nasal cannula. GENERAL: The patient is awake and alert, in no apparent distress. LUNGS: Extensive crackling is still present. There is no prolonged expiratory phase or wheezing appreciated. HEART: Normal rate, regular. ABDOMEN: Soft, nontender, and nondistended. Bowel sounds are positive. MUSCULOSKELETAL: No cyanosis or clubbing. No pitting in bilateral lower extremities. NEUROLOGIC: Grossly nonfocal. LABORATORY DATA: WBC 8.3, hemoglobin 10.7, platelets 192,000, band count is 13%. Basic metabolic profile is essentially unremarkable. Phosphorus is 2.2, but she is tolerating p.o. Magnesium 1.6. BNP was previously 101. Procalcitonin is downtrending. Urine drug screen is positive for several things. Blood cultures x6 are unremarkable. Urine culture is negative. ASSESSMENT: 1. Acute hypoxic respiratory failure, improving. 2. Community-acquired pneumonia, possible. 3. Metabolic encephalopathy, secondary to substance abuse, improving. 4. Schizophrenia with acute psychosis. 5. Acute volume overload, likely iatrogenic. DISCUSSION AND PLAN: We will continue to gently diurese her once daily. I will repeat a chest x-ray in the morning. Clinically, she is much better, but she still has persistent extensive crackles throughout bilateral lung shaffer. If she continues to trend in the right direction, it will be reasonable for her to transition to the floor in the morning. She will need to stay in the hospital for a couple of more days until she comes off oxygen altogether. Job ID: [id number]
[2018-06-13] MEDS: Acetaminophen 325 MG TAB PO PRN (22:16)
[2018-06-13] MEDS: Vancomycin HCl 1.5 GM in Sodium Chloride 0.9% 250 ML 300 ML IVPB SCH (22:18)
[2018-06-14] MEDS: Diabetic Tussin 200 MG/10 ML UDCUP PO SCH ×5 (02:38→18:11)
[2018-06-14] MEDS: Haloperidol Lactate 5 MG/ML VIAL IM SCH ×2 (02:38→06:01)
[2018-06-14] MEDS: Albuterol Sulfate 2.5 mg/3 ml Neb NEB SCH ×7 (03:00→22:17)
[2018-06-14] MEDS: Acetaminophen 325 MG TAB PO PRN ×2 (04:53→15:29)
[2018-06-14 05:13] LABS: Anion Gap 11 mmol/L (10-20); BUN (Urea Nitrogen) 9 mg/dL (7.0-18.7); Calc. Creatinine Clearance 124 mL/min (70-130); Calcium 8.7 mg/dL (7.8-10.44); Carbon Dioxide 28 mmol/L (22-29); Chloride 103 mmol/L (98-107); Estimated GFR-MDRD Greater than 90; Glucose 163 mg/dL (70-105); Potassium 3.5 mmol/L (3.5-5.1); Sodium 138 mmol/L (136-145)
[2018-06-14] MEDS: Piperacillin/Tazobactam 3.375 GM in Sodium Chloride 0.9% 100 ML IVPB SCH ×3 (05:59→17:03)
[2018-06-14] MEDS: Lorazepam 1 MG TAB PO PRN (06:01)
--- NOTE | 2018-06-14 06:43 | PDOC.FM ---
- Subjective Subjective: Pt A&Ox2 this morning. Pt states ready to go home. Pt denies any acute events overnight. Reports SOB improving. Pt denies any chest pain. Denies any headache. Pt denies any n/v/d/c. Pt has sitter precautions. States pt slept well overnight. Pt would wake up at times agitated. States pt was never very confused. - Objective MAR Reviewed: Yes Vital Signs & Weight: Vital Signs (12 hours) Temp Pulse Resp BP Pulse Ox 06/14/18 04:30 98.6 F 116 H 17 110/69 90 L 06/14/18 03:46 105 H 24 H 93 L 06/14/18 00:23 99.2 F 111 H 18 93/60 97 06/13/18 20:00 98 06/13/18 19:54 97.8 F 114 H 17 104/63 91 L 06/13/18 18:57 92 20 Weight Weight 66.134 kg Most Recent Monitor Data Heart Rate from ECG 108 NIBP 128/78 NIBP BP-Mean 94 Respiration from ECG 33 SpO2 92 I&O: 06/12/18 06/13/18 06/14/18 06:59 06:59 06:59 Intake Total 4840 3360 2400 Output Total 2298 7376 3450 Balance 2831 -9787 -8654 Result Diagrams: 06/12/18 04:22 06/14/18 04:09 Radiology Reviewed by me: Yes Radiology: Repeat x-ray done this morning. Official Read pending. Appears to be improving. Still appears congested at this time. <Angel Milligan - Last Filed: 06/14/18 06:41> - Objective Vital Signs & Weight: Vital Signs (12 hours) Temp Pulse Resp BP Pulse Ox 06/14/18 10:56 80 20 06/14/18 07:57 98 06/14/18 07:37 98.4 F 112 H 22 H 104/67 97 06/14/18 07:08 70 22 H 96 06/14/18 04:30 98.6 F 116 H 17 110/69 90 L 06/14/18 03:46 105 H 24 H 93 L 06/14/18 00:23 99.2 F 111 H 18 93/60 97 Weight Weight 66.134 kg Most Recent Monitor Data Heart Rate from ECG 108 NIBP 128/78 NIBP BP-Mean 94 Respiration from ECG 33 SpO2 92 I&O: 06/13/18 06/14/18 06/15/18 06:59 06:59 06:59 Intake Total 3360 3050 Output Total 7350 3450 Balance -3990 -400 Result Diagrams: 06/12/18 04:22 06/14/18 04:09 <Jerel Hopper - Last Filed: 06/14/18 11:22> Phys Exam - Physical Examination Constitutional: NAD HEENT: PERRLA, moist MMs, oral pharynx no lesions Neck: no nodes, no JVD, supple, full ROM Rales noted in both lungs bilaterally. No wheezing or crackles noted at this time Cardiovascular: RRR, no significant murmur, no rub Gastrointestinal: soft, non-tender, no distention, positive bowel sounds Musculoskeletal: no edema, pulses present Neurological: non-focal, moves all 4 limbs Lymphatic: no nodes Psychiatric: normal affect Deviation from normal: A&Ox2 Skin: no rash, normal turgor, cap refill <2 seconds <Angel Milligan - Last Filed: 06/14/18 06:41> Dx/Plan (1) Overdose Code(s): T50.901A - POISONING BY UNSP DRUG/MEDS/BIOL SUBST, ACCIDENTAL, INIT Status: Acute (2) Aspiration pneumonia Code(s): J69.0 - PNEUMONITIS DUE TO INHALATION OF FOOD AND VOMIT Status: Acute Qualifiers: Aspiration pneumonia type: due to vomit Laterality: bilateral (3) Drug abuse Code(s): F19.10 - OTHER PSYCHOACTIVE SUBSTANCE ABUSE, UNCOMPLICATED Status: Acute (4) Hypokalemia Code(s): E87.6 - HYPOKALEMIA Status: Resolved (5) Hypomagnesemia Code(s): E83.42 - HYPOMAGNESEMIA Status: Resolved (6) CAL (acute kidney injury) Code(s): N17.9 - ACUTE KIDNEY FAILURE, UNSPECIFIED Status: Resolved (7) Schizophrenia Code(s): F20.9 - SCHIZOPHRENIA, UNSPECIFIED Status: Chronic (8) Prolonged Q-T interval on ECG Code(s): R94.31 - ABNORMAL ELECTROCARDIOGRAM [ECG] [EKG] Status: Resolved - Plan Plan: Overdose, suspect seroquel and trazadone - Poison control notified. EKG shows prolonged QT upon admission. Replacing electrolytes as needed. - Repeat EKG 4 days ago showed QTc at 510 that has continued to downtrend. - Patient O2 weaned down to 2 L this am and O2 sats 91-94%. Improved from yesterday. - Pulmonology is following. Appreciate recs. Will continue RALPH albuterol Q4H per pulmonology & supplemental O2 via NC to maintain sats >92%. Switched back to broad spectrum abx as it is likely that the patient has now developed an aspiration pneumonia. -Repeat C-xray pending today. Will continue with lasix for pulm edema as well. - [facility] consult once medically stable. Sepsis 2/2 Suspected Aspiration PNA - Fever and tachycardia on 06/11 w/ suspected pulmonary infiltrates meets sepsis criteria. Pt still had fever 2 nights ago and elevated HR -Urine and Blood Cx show NGTD. Repeat C-xray pending per above. - WBC stable. Procalcitonin negative. - Will continue O2 support PRN and wean as tolerated by patient. Still requiring 2L to maintain sats >92%. Will continue RALPH ventolin as well. - Will continue IV broad spectrum antibiotics per pulm recs. - Will continue PO tylenol & robitussin for fever and cough. Schizophrenia -per poison control yesterday, should be safe to resume home meds now whenever we see fit. Will restart pt seroquel at 100mg daily. Will keep ativan PRN for agitation. Will d/c haldol at this time. Hypophosphatemia - Phos pending. - Will continue to monitor and replace PRN. Hypomagnesmia (Resoloved) - Resolved, Mg WNLs at 1.7 today. - Will continue to monitor and replace PRN. Hypokalemia (Resolved) - Resolved as K was 3.7 this AM. - Will continue to monitor and replace PRN. <Angel Milligan - Last Filed: 06/14/18 06:41> Attending Addendum - Attending Addendum Date/Time: 06/14/18 1121 I personally evaluated the patient and discussed the management with Dr. Milligan. I agree with and repeated the History, Examination, Assessment and Plan documented above with any addition or exceptions noted below. Pt tearful this morning and is concerned she won't be able to go home for Reva. Lungs with scant wheezes, scattered crackles and decreased wob this. AM. Transfer to floor. Off O2 currently. <Jerel Hopper - Last Filed: 06/14/18 11:22>
[2018-06-14 06:58] LABS: Magnesium 1.8 mg/dL (1.6-2.6)
[2018-06-14] MEDS ORDERED: Potassium Chloride 20 MEQ TAB PO SCH (07:00)
--- NOTE | 2018-06-14 08:56 | RAD ---
SINGLE VIEW CHEST: Date: 06/14/18 COMPARISON: 06/11/18. HISTORY: Hypoxia. FINDINGS: Single view of the chest shows a normal sized cardiomediastinal silhouette. Increased interstitial saad ng markings are present. There may be superimposed air space opacities scattered throughout the lungs , unchanged. IMPRESSION: Stable exam. POS: RUPERT
[2018-06-14] MEDS ORDERED: Furosemide 20 MG/2 ML VIAL SLOW IVP SCH (09:00)
[2018-06-14] MEDS: Enoxaparin Sodium 40 MG/0.4 ML SYRINGE SC SCH (09:11)
[2018-06-14] MEDS: Vancomycin HCl 1.5 GM in Sodium Chloride 0.9% 250 ML 300 ML IVPB SCH ×2 (09:11→21:35)
[2018-06-14] MEDS: Famotidine/PF 20 mg/2ml Vial SLOW IVP SCH ×2 (09:11→20:56)
[2018-06-14 20:31] LABS: Vancomycin, Trough 9.8 ug/mL
--- NOTE | 2018-06-14 20:48 | PRG ---
DATE OF SERVICE: 06/14/2018 SUBJECTIVE: Events over the weekend were noted. She is back on IV antimicrobial therapy because of fever. She is on vancomycin and Zosyn. Cultures are negative. She developed fever while on Augmentin. When she is taken off the Zosyn, she could be started on Cleocin. It is highly likely that this is an aspiration process. It is unlikely that MRSA is a pathogen, so the vancomycin could be discontinued in my opinion. She is being transferred out of the intermediate care unit. She is not to the point where she can be discharged. Chest radiograph still shows alveolar infiltrate consistent with aspiration. Job ID: [id number]
[2018-06-14] MEDS ORDERED: Vancomycin HCl 1.25 GM in Sodium Chloride 0.9% 250 ML 250 ML IVPB SCH (22:00)
[2018-06-15] MEDS: Diabetic Tussin 200 MG/10 ML UDCUP PO SCH ×7 (00:22→23:23)
[2018-06-15] MEDS: Acetaminophen 325 MG TAB PO PRN ×3 (00:41→17:59)
[2018-06-15] MEDS: Piperacillin/Tazobactam 3.375 GM in Sodium Chloride 0.9% 100 ML IVPB SCH ×5 (01:42→23:22)
[2018-06-15] MEDS: Ondansetron PF 4 MG/2 ML Vial IVP PRN (01:42)
[2018-06-15] MEDS ORDERED: Vancomycin HCl 1.25 GM in Sodium Chloride 0.9% 250 ML 250 ML IVPB SCH (02:00)
[2018-06-15] MEDS: Albuterol Sulfate 2.5 mg/3 ml Neb NEB SCH ×6 (02:24→22:19)
[2018-06-15 06:04] LABS: Anion Gap 11 mmol/L (10-20); BUN (Urea Nitrogen) 7 mg/dL (7.0-18.7); Calc. Creatinine Clearance 141 mL/min (70-130); Carbon Dioxide 26 mmol/L (22-29); Chloride 104 mmol/L (98-107); Estimated GFR-MDRD Greater than 90; Glucose 118 mg/dL (70-105); Potassium 3.4 mmol/L (3.5-5.1); Sodium 138 mmol/L (136-145)
--- NOTE | 2018-06-15 07:12 | PDOC.FM ---
- Subjective Subjective: Pt reports feeling better. Pt wondering when she can go home. Pt denies any acute SOB. Pt denies any acute events overnight. Pt reports having some loose stools at this time. Pt reports doing well getting up and walking around. Pt has sitter in the room. Has been having pt keep oxygen on. States was 91 percent with O2 on overnight. - Objective MAR Reviewed: Yes Vital Signs & Weight: Vital Signs (12 hours) Temp Pulse Resp BP BP Pulse Ox 06/15/18 04:00 97.9 F 109 H 20 98/62 91 L 06/14/18 20:00 92 L 06/14/18 19:31 98.5 F 104 H 20 111/61 92 L Weight Weight 66.871 kg Most Recent Monitor Data Heart Rate from ECG 108 NIBP 128/78 NIBP BP-Mean 94 Respiration from ECG 33 SpO2 92 I&O: 06/14/18 06/15/18 06/16/18 06:59 06:59 06:59 Intake Total 3050 2315 Output Total 3450 3600 Balance -400 -1285 Result Diagrams: 06/12/18 04:22 06/15/18 04:44 Radiology Reviewed by me: Yes Radiology: No new imaging to review at this time. <Angel Milligan - Last Filed: 06/15/18 07:10> - Objective Vital Signs & Weight: Vital Signs (12 hours) Temp Pulse Resp BP Pulse Ox 06/15/18 14:30 90 14 06/15/18 13:40 97.8 F 84 18 115/63 93 L 06/15/18 10:51 100 14 06/15/18 08:04 98.3 F 105 H 18 116/61 90 L 06/15/18 08:00 94 L 06/15/18 07:29 100 16 Weight Weight 66.871 kg Most Recent Monitor Data Heart Rate from ECG 108 NIBP 128/78 NIBP BP-Mean 94 Respiration from ECG 33 SpO2 92 I&O: 06/14/18 06/15/18 06/16/18 06:59 06:59 06:59 Intake Total 3050 2315 480 Output Total 3450 3600 Balance -400 -1285 480 Result Diagrams: 06/15/18 04:44 06/15/18 04:44 <Jerel Hopper - Last Filed: 06/15/18 17:00> Phys Exam - Physical Examination Constitutional: NAD HEENT: PERRLA, moist MMs, oral pharynx no lesions Neck: no nodes, supple, full ROM Respiratory: no rhonchi Some wheezing noted with crackles bilaterally Cardiovascular: RRR, no significant murmur Gastrointestinal: soft, non-tender, no distention, positive bowel sounds Musculoskeletal: no edema, pulses present Neurological: non-focal, normal sensation, moves all 4 limbs Lymphatic: no nodes Psychiatric: normal affect, A&O x 3 Skin: no rash, normal turgor <Angel Milligan - Last Filed: 06/15/18 07:10> Dx/Plan (1) Overdose Code(s): T50.901A - POISONING BY UNSP DRUG/MEDS/BIOL SUBST, ACCIDENTAL, INIT Status: Acute (2) Aspiration pneumonia Code(s): J69.0 - PNEUMONITIS DUE TO INHALATION OF FOOD AND VOMIT Status: Acute Qualifiers: Aspiration pneumonia type: due to vomit Laterality: bilateral (3) Drug abuse Code(s): F19.10 - OTHER PSYCHOACTIVE SUBSTANCE ABUSE, UNCOMPLICATED Status: Acute (4) Hypokalemia Code(s): E87.6 - HYPOKALEMIA Status: Resolved (5) Hypomagnesemia Code(s): E83.42 - HYPOMAGNESEMIA Status: Resolved (6) CAL (acute kidney injury) Code(s): N17.9 - ACUTE KIDNEY FAILURE, UNSPECIFIED Status: Resolved (7) Schizophrenia Code(s): F20.9 - SCHIZOPHRENIA, UNSPECIFIED Status: Chronic (8) Prolonged Q-T interval on ECG Code(s): R94.31 - ABNORMAL ELECTROCARDIOGRAM [ECG] [EKG] Status: Resolved - Plan Plan: Overdose, suspect seroquel and trazadone - Poison control notified. EKG shows prolonged QT upon admission. Replacing electrolytes as needed. - Repeat EKG 5 days ago showed QTc at 510 that has continued to downtrend. - Patient O2 weaned down to 2 L this am and O2 sats 91-94%. Will try home O2 test and see how pt O2 sats do when up and walking. - Pulmonology is following. Appreciate recs. Will continue RALPH albuterol Q4H per pulmonology & supplemental O2 via NC to maintain sats >92%. Have discontinued vancomycin this time. Covering with zosyn. . Will continue with lasix for pulm edema as well. - MR consult once medically stable. Sepsis 2/2 Suspected Aspiration PNA - Fever and tachycardia on 06/11 w/ suspected pulmonary infiltrates meets sepsis criteria. Pt still had fever 2 nights ago and elevated HR -Urine and Blood Cx show NGTD at 48 hours - WBC stable. Procalcitonin negative. CBC pending today. - Will continue O2 support PRN and wean as tolerated by patient. Still requiring 2L to maintain sats >92%. Will continue RALPH ventolin as well. - Will continue zosyn at this time. Will switch to Cleocin per Pulm recs once pt is ready for discharge - Will continue PO tylenol & robitussin for fever and cough. Schizophrenia -per poison control yesterday, should be safe to resume home meds now whenever we see fit. Will restart pt seroquel at 100mg daily. Will keep ativan PRN for agitation. Will d/c haldol at this time. Hypophosphatemia - Phos pending. - Will continue to monitor and replace PRN. Hypomagnesmia (Resoloved) - Mg pending today - Will continue to monitor and replace PRN. Hypokalemia (Resolved) - Low today. Will replace - Will continue to monitor and replace PRN. <Angel Milligan - Last Filed: 06/15/18 07:10> Attending Addendum - Attending Addendum Date/Time: 06/15/18 3936 I personally evaluated the patient and discussed the management with Dr. Tam. I agree with and repeated the History, Examination, Assessment and Plan documented above with any addition or exceptions noted below. Looks markedly improved from previous days. Exam with scant crackles. Will discuss with pulm and possibly talk with [facility] today. <Jerel Hopper - Last Filed: 06/15/18 17:00>
[2018-06-15] MEDS ORDERED: Furosemide 20 MG/2 ML VIAL SLOW IVP SCH (07:15)
[2018-06-15 07:19] LABS: #Basophils 0.1 thou/uL (0.0-0.2); #Eosinphils 0.2 thou/uL (0.0-0.7); #Lymphocytes 1.8 thou/uL (1.20-3.40); #Monocytes 1.1 thou/uL (0.11-0.59); #Neutrophils 8.8 thou/uL (1.40-6.50); %Basophils 0.5 % (0.0-1.0); %Lymphocytes 14.9 % (21.0-51.0); %Neutrophils 73.7 % (42.0-75.0); Hemoglobin 11.1 g/dL (12.0-16.0); Mean Corpuscular HGB CONC 31.8 g/dL (32.0-36.0); Mean Corpuscular Hemoglobin 29.6 pg (27.0-31.0); Mean Corpuscular Volume 93.1 fL (78.0-98.0); Mean Platelet Volume 7.9 fL (7.4-10.4); Platelet Count 315 thou/uL (130-400); Red Blood Cell (RBC) Count 3.75 mill/uL (4.20-5.40); White Blood Cell (WBC) Count 11.9 thou/uL (4.8-10.8)
[2018-06-15 08:00] LABS: Phosphorus 2.7 mg/dL (2.3-4.7)
[2018-06-15] MEDS: Potassium Chloride 20 MEQ TAB PO SCH (08:28)
[2018-06-15] MEDS: Lorazepam 1 MG TAB PO PRN ×2 (08:29→23:22)
[2018-06-15] MEDS: predniSONE 20 MG TAB PO SCH (08:29)
[2018-06-15] MEDS: Famotidine/PF 20 mg/2ml Vial SLOW IVP SCH ×2 (08:30→20:25)
[2018-06-15] MEDS: Enoxaparin Sodium 40 MG/0.4 ML SYRINGE SC SCH (08:30)
[2018-06-15] MEDS: Nicotine 14 MG PATCH TD SCH (15:11)
[2018-06-16 01:24] LABS: Vancomycin, Trough 2.2 ug/mL
[2018-06-16 01:48] LABS: Anion Gap 16 mmol/L (10-20); BUN (Urea Nitrogen) 7 mg/dL (7.0-18.7); Calc. Creatinine Clearance 121 mL/min (70-130); Calcium 9.4 mg/dL (7.8-10.44); Carbon Dioxide 20 mmol/L (22-29); Chloride 102 mmol/L (98-107); Estimated GFR-MDRD Greater than 90; Glucose 187 mg/dL (70-105); Potassium 3.3 mmol/L (3.5-5.1); Sodium 135 mmol/L (136-145)
[2018-06-16] MEDS: Albuterol Sulfate 2.5 mg/3 ml Neb NEB SCH ×6 (02:21→22:01)
[2018-06-16] MEDS: Diabetic Tussin 200 MG/10 ML UDCUP PO SCH ×5 (03:18→21:02)
[2018-06-16] MEDS: Cepastat Lozenges 1 LOZ PO PRN ×4 (03:19→16:06)
[2018-06-16] MEDS: Lorazepam 1 MG TAB PO PRN (03:54)
[2018-06-16] MEDS: Acetaminophen 325 MG TAB PO PRN ×2 (03:54→11:41)
[2018-06-16] MEDS: Piperacillin/Tazobactam 3.375 GM in Sodium Chloride 0.9% 100 ML IVPB SCH ×3 (05:19→11:44)
--- NOTE | 2018-06-16 07:12 | PDOC.FM ---
- Subjective Subjective: Pt doing better this morning. Reports not being able to sleep well overnight. Pt states seroquel helping but needs home trazadone dose. Pt also reports having diarrhea at this time. Reports going to the bathroom every hour. Reports as watery. Pt denies any SOB when up and walking. Denies any chest pain. Denies any acute events overnight. Pt still wondering when she can go home. - Objective MAR Reviewed: Yes Vital Signs & Weight: Vital Signs (12 hours) Temp Pulse Resp BP Pulse Ox 06/16/18 06:58 100 12 06/16/18 04:00 96.1 F L 116 H 20 117/70 95 06/16/18 00:00 96.0 F L 108 H 20 122/78 95 06/15/18 22:19 12 06/15/18 20:00 97.0 F L 107 H 20 129/70 95 Weight Weight 66.2 kg Most Recent Monitor Data Heart Rate from ECG 108 NIBP 128/78 NIBP BP-Mean 94 Respiration from ECG 33 SpO2 92 I&O: 06/15/18 06/16/18 06/17/18 06:59 06:59 06:59 Intake Total 2315 2470 Output Total 3600 1 Balance -1286 6773 Result Diagrams: 06/15/18 04:44 06/16/18 00:35 Radiology Reviewed by me: Yes Radiology: No new imaging <Angel Milligan - Last Filed: 06/16/18 07:11> - Objective Vital Signs & Weight: Vital Signs (12 hours) Temp Pulse Resp BP BP Pulse Ox 06/16/18 07:53 103 H 16 160/63 H 97 06/16/18 06:58 100 12 06/16/18 04:00 96.1 F L 116 H 20 117/70 95 06/16/18 00:00 96.0 F L 108 H 20 122/78 95 Weight Weight 66.2 kg Most Recent Monitor Data Heart Rate from ECG 108 NIBP 128/78 NIBP BP-Mean 94 Respiration from ECG 33 SpO2 92 I&O: 06/15/18 06/16/18 06/17/18 06:59 06:59 06:59 Intake Total 2315 2470 Output Total 3600 1 Balance -1285 2469 Result Diagrams: 06/16/18 07:45 06/16/18 00:35 <Jerel Hopper - Last Filed: 06/16/18 10:45> Phys Exam - Physical Examination Constitutional: NAD HEENT: PERRLA, moist MMs, oral pharynx no lesions Neck: no nodes, no JVD, supple, full ROM Respiratory: wheezing present no rales or crackles Cardiovascular: RRR, no significant murmur, no rub Gastrointestinal: soft, non-tender, no distention, positive bowel sounds Musculoskeletal: no edema, pulses present Neurological: non-focal, moves all 4 limbs Psychiatric: A&O x 3 Deviation from normal: Pt somewhat anxious and agitated Skin: no rash, normal turgor, cap refill <2 seconds <Nader Milliganis - Last Filed: 06/16/18 07:11> Dx/Plan (1) Overdose Code(s): T50.901A - POISONING BY UNSP DRUG/MEDS/BIOL SUBST, ACCIDENTAL, INIT Status: Acute (2) Aspiration pneumonia Code(s): J69.0 - PNEUMONITIS DUE TO INHALATION OF FOOD AND VOMIT Status: Acute Qualifiers: Aspiration pneumonia type: due to vomit Laterality: bilateral (3) Drug abuse Code(s): F19.10 - OTHER PSYCHOACTIVE SUBSTANCE ABUSE, UNCOMPLICATED Status: Acute (4) Hypokalemia Code(s): E87.6 - HYPOKALEMIA Status: Resolved (5) Hypomagnesemia Code(s): E83.42 - HYPOMAGNESEMIA Status: Resolved (6) CAL (acute kidney injury) Code(s): N17.9 - ACUTE KIDNEY FAILURE, UNSPECIFIED Status: Resolved (7) Schizophrenia Code(s): F20.9 - SCHIZOPHRENIA, UNSPECIFIED Status: Chronic (8) Prolonged Q-T interval on ECG Code(s): R94.31 - ABNORMAL ELECTROCARDIOGRAM [ECG] [EKG] Status: Resolved - Plan Plan: Overdose, suspect seroquel and trazadone - Poison control notified. EKG shows prolonged QT upon admission. Replacing electrolytes as needed. - Repeat EKG 5 days ago showed QTc at 510 that has continued to downtrend. - Patient O2 weaned down to 2 L this am and O2 sats 91-94%. Will try home O2 test and see how pt O2 sats do when up and walking. - Pulmonology is following. Appreciate recs. Will continue RALPH albuterol Q4H per pulmonology & supplemental O2 via NC to maintain sats >92%. coverning with zosyn. will switch to cleocin upon discharge. -Pt having wheezing today. continue duonebs. - MR consult once medically stable. Sepsis 2/2 Suspected Aspiration PNA - Fever and tachycardia on 12/8 w/ suspected pulmonary infiltrates meets sepsis criteria. Pt still had fever 4 nights ago and elevated HR -Urine and Blood Cx show NGTD at 48 hours - WBC stable. Procalcitonin negative. CBC pending today. -Pt off O2 at this time. Sats down to 90 when up and walking. Will repeat home O2 test. Pt likely ready for discharge today. - Will continue zosyn at this time. Will switch to Cleocin per Pulm recs once pt is ready for discharge - Will continue PO tylenol & robitussin for fever and cough. Schizophrenia -per poison control yesterday, should be safe to resume home meds now whenever we see fit. Will restart pt seroquel at 100mg daily. Will keep ativan PRN for agitation. Will d/c haldol at this time. Hypophosphatemia (Resolved) - Will continue to monitor and replace PRN. Hypomagnesmia (Resoloved) - Will continue to monitor and replace PRN. Hypokalemia (Resolved) - Low today. Will replace - Will continue to monitor and replace PRN. <Angel Milligan - Last Filed: 06/16/18 07:11> Attending Addendum - Attending Addendum Date/Time: 06/16/18 1044 I personally evaluated the patient and discussed the management with Dr. Milligan. I agree with and repeated the History, Examination, Assessment and Plan documented above with any addition or exceptions noted below. Plan for [facility] consultation today. <Jerel Hopper - Last Filed: 06/16/18 10:45>
[2018-06-16] MEDS ORDERED: Potassium Chloride 20 MEQ TAB PO SCH (07:15)
[2018-06-16 07:55] LABS: #Basophils 0.1 thou/uL (0.0-0.2); #Eosinphils 0.2 thou/uL (0.0-0.7); #Lymphocytes 2.2 thou/uL (1.20-3.40); #Monocytes 1.1 thou/uL (0.11-0.59); %Basophils 0.4 % (0.0-1.0); %Eosinophils 1.6 % (0.0-10.0); %Lymphocytes 18.7 % (21.0-51.0); %Monocytes 9.5 % (0.0-10.0); %Neutrophils 69.8 % (42.0-75.0); Hemoglobin 10.7 g/dL (12.0-16.0); Mean Corpuscular HGB CONC 33.9 g/dL (32.0-36.0); Mean Corpuscular Hemoglobin 31.1 pg (27.0-31.0); Mean Corpuscular Volume 91.7 fL (78.0-98.0); Mean Platelet Volume 7.4 fL (7.4-10.4); Platelet Count 437 thou/uL (130-400); RBC Distribution Width 11.9 % (11.5-14.5); Red Blood Cell (RBC) Count 3.44 mill/uL (4.20-5.40); White Blood Cell (WBC) Count 11.5 thou/uL (4.8-10.8)
[2018-06-16] MEDS: Potassium Chloride 20 MEQ TAB PO SCH (09:28)
[2018-06-16] MEDS: predniSONE 20 MG TAB PO SCH (09:29)
[2018-06-16] MEDS: Enoxaparin Sodium 40 MG/0.4 ML SYRINGE SC SCH (09:29)
[2018-06-16] MEDS: Famotidine/PF 20 mg/2ml Vial SLOW IVP SCH ×2 (09:29→21:02)
--- NOTE | 2018-06-16 12:36 | PRG ---
DATE OF SERVICE: 06/16/2018 SUBJECTIVE: Shawna Alexandre [place] remained stable. She quickly woke up, got out of bed, started walking around the room, asking when she can go home. OBJECTIVE: VITAL SIGNS: Heart rate is 100, respiratory rate is 14, oximetry 97% on room air, and blood pressure 160/93. LUNGS: Almost completely clear now. HEART: Regular rhythm. ABDOMEN: Soft. IMPRESSION: Aspiration pneumonia after an intentional overdose. PLAN: We will discontinue her IV antibiotics, switch her to p.o. antibiotics. She admits to being depressed and intentionally taking an overdose. She gave me multiple different reasons, none of which seemed significant enough to justify an attempted suicide. She is stable from a pulmonary standpoint. The mental health issues are the only pressing issues at this time. We will sign off. Job ID: [id number]
[2018-06-16] MEDS: Clindamycin 150 MG CAP PO SCH ×2 (14:20→18:28)
[2018-06-16] MEDS: Nicotine 14 MG PATCH TD SCH (15:24)
[2018-06-17] MEDS: Clindamycin 150 MG CAP PO SCH ×2 (00:32→05:25)
[2018-06-17] MEDS: Diabetic Tussin 200 MG/10 ML UDCUP PO SCH ×3 (00:32→08:38)
[2018-06-17] MEDS: Albuterol Sulfate 2.5 mg/3 ml Neb NEB SCH ×3 (01:46→10:10)
[2018-06-17] MEDS: Acetaminophen 325 MG TAB PO PRN ×2 (03:31→08:39)
[2018-06-17] MEDS: Cepastat Lozenges 1 LOZ PO PRN (05:25)
[2018-06-17 05:43] LABS: Anion Gap 11 mmol/L (10-20); BUN (Urea Nitrogen) 9 mg/dL (7.0-18.7); Calc. Creatinine Clearance 117 mL/min (70-130); Carbon Dioxide 25 mmol/L (22-29); Chloride 104 mmol/L (98-107); Estimated GFR-MDRD Greater than 90; Glucose 109 mg/dL (70-105); Potassium 3.7 mmol/L (3.5-5.1); Sodium 136 mmol/L (136-145)
[2018-06-17 07:23] VITALS: BP 122/76; TEMP 97.7
[2018-06-17] MEDS: predniSONE 20 MG TAB PO SCH (08:39)
[2018-06-17] MEDS: Famotidine/PF 20 mg/2ml Vial SLOW IVP SCH (08:40)
[2018-06-17] MEDS: Lorazepam 1 MG TAB PO PRN (08:44)
[2018-06-17] MEDS: Enoxaparin Sodium 40 MG/0.4 ML SYRINGE SC SCH (08:48)
--- NOTE | 2018-06-17 10:28 | PDOC.FM ---
- Subjective Subjective: Pt reports doing well this morning. Denies any acute events overnight. Pt denies any chest pain or SOB. Still reports having a cough. Pt is ready to go home. Pt feels well. No other concerns at this time. - Objective Vital Signs & Weight: Vital Signs (12 hours) Temp Pulse Resp BP Pulse Ox 06/17/18 07:20 97.7 F 105 H 20 122/76 98 Weight Weight 66.3 kg Most Recent Monitor Data Heart Rate from ECG 108 NIBP 128/78 NIBP BP-Mean 94 Respiration from ECG 33 SpO2 92 I&O: 06/16/18 06/17/18 06/18/18 06:59 06:59 06:59 Intake Total 2470 1880 Output Total 1 Balance 2469 1880 Result Diagrams: 06/16/18 07:45 06/17/18 04:45 Radiology Reviewed by me: Yes Radiology: No new imaging to review at this time <Angel Milligan - Last Filed: 06/17/18 10:26> - Objective Vital Signs & Weight: Vital Signs (12 hours) Temp Pulse Resp BP Pulse Ox 06/17/18 07:20 97.7 F 105 H 20 122/76 98 Weight Weight 66.3 kg Most Recent Monitor Data Heart Rate from ECG 108 NIBP 128/78 NIBP BP-Mean 94 Respiration from ECG 33 SpO2 92 I&O: 06/16/18 06/17/18 06/18/18 06:59 06:59 06:59 Intake Total 2470 1880 Output Total 1 Balance 2469 1880 Result Diagrams: 06/16/18 07:45 06/17/18 04:45 <Jerel Hopper - Last Filed: 06/17/18 11:43> Phys Exam - Physical Examination Constitutional: NAD HEENT: PERRLA, moist MMs Neck: full ROM Respiratory: no wheezing, no rhonchi some crackles noted bilaterally Cardiovascular: RRR, no significant murmur, no rub Neurological: non-focal, moves all 4 limbs Psychiatric: A&O x 3 Skin: no rash <Angel Milligan - Last Filed: 06/17/18 10:26> Dx/Plan (1) Overdose Code(s): T50.901A - POISONING BY UNSP DRUG/MEDS/BIOL SUBST, ACCIDENTAL, INIT Status: Acute (2) Aspiration pneumonia Code(s): J69.0 - PNEUMONITIS DUE TO INHALATION OF FOOD AND VOMIT Status: Acute Qualifiers: Aspiration pneumonia type: due to vomit Laterality: bilateral (3) Drug abuse Code(s): F19.10 - OTHER PSYCHOACTIVE SUBSTANCE ABUSE, UNCOMPLICATED Status: Acute (4) Hypokalemia Code(s): E87.6 - HYPOKALEMIA Status: Resolved (5) Hypomagnesemia Code(s): E83.42 - HYPOMAGNESEMIA Status: Resolved (6) CAL (acute kidney injury) Code(s): N17.9 - ACUTE KIDNEY FAILURE, UNSPECIFIED Status: Resolved (7) Schizophrenia Code(s): F20.9 - SCHIZOPHRENIA, UNSPECIFIED Status: Chronic (8) Prolonged Q-T interval on ECG Code(s): R94.31 - ABNORMAL ELECTROCARDIOGRAM [ECG] [EKG] Status: Resolved - Plan Plan: Overdose, suspect seroquel and trazadone - Poison control notified. EKG shows prolonged QT upon admission. Replacing electrolytes as needed. -Pt has been off O2 for last 2 days. - Pulmonology is following. Appreciate recs. On cleocin at this time - [facility] consulted yesterday. Sepsis 2/2 Suspected Aspiration PNA - Fever and tachycardia on 06/11 w/ suspected pulmonary infiltrates meets sepsis criteria. -Urine and Blood Cx show NGTD at 48 hours - WBC stable. Procalcitonin negative. -Pt off O2 at this time. Pt O2 sats stable. - On cleocin. will continue for another week. - Will continue PO tylenol & robitussin for fever and cough. Schizophrenia -per poison control yesterday, should be safe to resume home meds now whenever we see fit. Will restart pt seroquel at 100mg daily. Will keep ativan PRN for agitation. Will d/c haldol at this time. -[facility] consulted. States pt needs inpatient rehab. Pt being discharged to [facility] Today. Hypophosphatemia (Resolved) - Will continue to monitor and replace PRN. Hypomagnesmia (Resoloved) - Will continue to monitor and replace PRN. Hypokalemia (Resolved) - Low today. Will replace - Will continue to monitor and replace PRN. <Angel Milligan - Last Filed: 06/17/18 10:26> Attending Addendum - Attending Addendum Date/Time: 06/17/18 1143 I personally evaluated the patient and discussed the management with Dr. Milligan. I agree with and repeated the History, Examination, Assessment and Plan documented above with any addition or exceptions noted below. She will need follow up after inpatient stay for her anemia, thrombocytosis, etc. Otherwise denies SIHI and denies f/c/n/v. <Jerel Hopper - Last Filed: 06/17/18 11:43>
== END 2018-06-17 10:23 | DRG 917 ==
LOC: ERS 08:19 → CCU 11:59 → T4-B 06-10 11:24 → IMCU/EMU 06-11 20:37 → T4-A 06-14 14:38
PROVIDERS: ADMIT Family Medicine; ATTEND Family Medicine
PROC: 5A1945Z Respiratory Ventilation, 24-96 Consecutive Hours (ICD-10-PCS; principal; 2018-06-08)
DX: T43.591A Poisoning by other antipsychotics and neuroleptics, accidental (unintentional), initial encounter (principal); J96.01 Acute respiratory failure with hypoxia; J69.0 Pneumonitis due to inhalation of food and vomit; G92 Toxic encephalopathy; N17.9 Acute kidney failure, unspecified; T43.211A Poisoning by selective serotonin and norepinephrine reuptake inhibitors, accidental (unintentional), initial encounter; E87.6 Hypokalemia; E83.42 Hypomagnesemia; E86.9 Volume depletion, unspecified
CPT/HCPCS: 36415; 51702; 70450; 71045; 80048; 80053; 80202; 80306; 81003; 81015; 81025; 82140; 82550; 82805; 83735; 83880; 84100; 84145; 84443; 85025; 87040; 87086; 93005; 93010; 94002; 94003; 94640; 96361; 96365; 96375; J0295; J1630; J1650; J1940; J2060; J2270; J2405; J2543; J2704; J3010; J3370; J3475; J3480; J7050; J7506; J7611; S0028

== ENCOUNTER 2020-01-26 16:52 | Emergency (ER) | payer MEDICARE, MEDICAID ==
--- NOTE | 2020-01-26 17:47 | RAD ---
LEFT SHOULDER THREE VIEWS: 01/26/20 HISTORY: Shoulder pain. There is no signs of fracture, dislocation or other bony findings. Minimal arthrosis of the AC joint seen. IMPRESSION: Unremarkable left shoulder. POS: MARI
[2020-01-26] MEDS ORDERED: Ketorolac Tromethamine 30 MG/ML VIAL ONE (17:54)
== END 2020-01-26 18:00 | disposition home or self-care (01) ==
LOC: ERS 16:52
DX: M25.512 Pain in left shoulder (principal); I10 Essential (primary) hypertension; F31.9 Bipolar disorder, unspecified; F20.9 Schizophrenia, unspecified; X50.0XXA Overexertion from strenuous movement or load, initial encounter
CPT/HCPCS: 96372; J1885

== ENCOUNTER 2020-06-30 09:51 | Emergency (ER) | payer MEDICARE, OTHER ==
[2020-06-30 10:56] LABS: Bacteria/HPF 4+ HPF (None Seen); Bilirubin Negative (Negative); Blood, Urine Negative (Negative); Clarity Turbid (Clear); Glucose, Urine (Dipstick) Normal (Negative); Ketone, Urine Negative (Negative); Leukocyte 500 Leu/uL (Negative); Nitrite 2+ (Negative); Protein, Urine (Dipstick) 30 mg/dL (Neg-Trace); Specific Gravity, Urine 1.024 (1.002-1.036); Urobilinogen Normal mg/dL (Less than 2); WBC/HPF Greater than 50 HPF (0-3)
[2020-06-30 10:58] LABS: Pregnancy Test - Urine (BHCG) Negative (Negative); Pregu Control Background? CLEAR/WHITE (CLR/WHITE); Pregu Control Bar Appear? YES (CONTROL BAR); Specific Gravity 1.024 (1.002-1.036)
[2020-07-02 00:25] LABS: Chlamydia by PCR Not Detected (NotDetected); GC by PCR Not Detected (NotDetected)
== END 2020-06-30 12:10 | disposition home or self-care (01) ==
LOC: ERS 09:51
DX: N39.0 Urinary tract infection, site not specified (principal); Z79.899 Other long term (current) drug therapy; I10 Essential (primary) hypertension; F17.210 Nicotine dependence, cigarettes, uncomplicated
CPT/HCPCS: 81003; 81015; 81025; 87480; 87491; 87510; 87591; 87660; 99284